=== PATIENT | male | born 1950 | race American Indian/Alaskan Native ===

== ENCOUNTER 2018-02-03 13:34 | Inpatient (IN) | payer MEDICARE ==
--- NOTE | 2018-02-03 14:03 | Cat Scan Report ---
CT HEAD WITHOUT CONTRAST: HISTORY: Stroke. TECHNIQUE: Sequential 2.5mm CT images. COMPARISON: 12/10/17. FINDINGS: Cerebral Parenchyma: Moderate to large chronic infarcts in the right MCA distribution and bilateral medial cerebellar hemispheres are stable since the previous exam. No new areas of diminished attenuation are identified to suggest acute ischemia on noncontrast CT. Brainstem: Within normal limits. Ventricles: Normal. Sella: Normal. Extra-axial spaces: Normal. Basal Cisterns: Normal. Intracranial Hemorrhage: None. Midline Shift: None. Calvarium: Normal. Sinuses: Normal. Mastoid Air Cells: Normal. Visualized Orbits: Normal. IMPRESSION: No acute intracranial process. Multiple chronic infarcts which appear unchanged since 12/10/17. These findings were discussed with Dr. Hall in the emergency department at 1353 hrs.
--- NOTE | 2018-02-03 14:26 | XRay Report ---
AP CHEST: HISTORY: CVA, pneumonia Mild cardiomegaly and single lead pacemaker device are unchanged since 12/10/17. The lungs are clear. No evidence for pneumonia, CHF or pneumothorax. The bony structures are grossly intact. IMPRESSION: Mild cardiomegaly. Lungs clear.
[2018-02-03 14:29] LABS: Basophils % (Auto) 0.3 % (0.0-1.8); Eosinophils # (Auto) 0.1 K/mm3 (0.0-0.4); Eosinophils % (Auto) 0.7 % (0.0-4.3); Hematocrit 35.6 % (35.5-45.6); Hemoglobin 11.8 gm/dl (11.8-15.2); Lymphocytes # (Auto) 0.6 K/mm3 (1.2-5.4); Lymphocytes % (Auto) 6.7 % (13.4-35.0); Mean Corpuscular HGB Conc 33 % (32-34); Mean Corpuscular Hemoglobin 30 pg (28-32); Mean Corpuscular Volume 89 fl (84-94); Monocytes # (Auto) 0.7 K/mm3 (0.0-0.8); Monocytes % (Auto) 7.4 % (0.0-7.3); Platelet Count 170 K/mm3 (140-440); Red Cell Distribution Width 15.8 % (13.2-15.2)
[2018-02-03 14:37] LABS: INR 0.99 (0.87-1.13)
[2018-02-03 14:38] LABS: Partial Thromboplastin Time 28.1 Sec. (24.2-36.6)
[2018-02-03 15:05] LABS: Bilirubin,Urine NEG (Negative); Blood,Urine LG (Negative); Color,Urine Yellow (Yellow); Mucus,Urine FEW /HPF; Urobilinogen,Urine < 2.0 mg/dL (<2.0)
[2018-02-03] MEDS ORDERED: MAGNESIUM SULFATE 2GM/50ML 2 GM/50 ML BAG IV ONE (15:11)
[2018-02-03] MEDS ORDERED: ASPIRIN PR ONE (15:11)
[2018-02-03 15:18] LABS: Chol/HDL Ratio 1.81 %
[2018-02-03] MEDS ORDERED: NACL 0.9% 500 ML 500 ML IV ONE (15:58)
--- NOTE | 2018-02-03 16:05 | Emergency Department Report ---
ED Neuro Deficit HPI - General Chief Complaint: Neuro Symptoms/Deficit Stated Complaint: POSSIBLE STROKE Time Seen by Provider: 02/03/18 13:36 Source: patient, family, EMS (verbal report received from EMS.ems notes not available at time of chart dictation), RN notes reviewed, old records reviewed Mode of arrival: Stretcher Limitations: Altered Mental Status, Physical Limitation - History of Present Illness Initial Comments: This is a 67-year-old male who was previously known to this provider. Past medical history includes stroke 5 with residual left-sided weakness, heart disease, hypertension, seizure, high cholesterol, glaucoma, dementia, BPH. He also has an ICD device, was previously on Coumadin, not currently on systemic anticoagulation. The patient is brought to the hospital by EMS as a possible closed throat. As per verbal report from EMS, last known well time is 5:30 in the morning. The patient presented to the ER at 2:21 PM. The patient is accompanied by home health nurse. She reported that she feels that the patient appears weak than usual, and more lethargic usual. The patient is demented, but verbal, and cannot describe exacerbating or relieving factors cannot describe quality, nature or radiation. The patient does follow commands, and indicated that he does not have a headache, chest pain or abdominal pain. As per review of old medical records, including a recent hospitalization from November 2017, patient has been documented to have left-sided weakness. -: unknown Location: left arm, left leg Presenting Symptoms: Present: Weak/Paralyzed One Side History of same: Yes Place: home Quality: other (patient demented and cannot describe any of these factors.) Improves With: other (patient demented and cannot describe any of these factors. ) Worsens With: other (patient demented and cannot describe any of these factors.) On Anticoagulants: Yes Context: other (patient demented and cannot describe any of these factors.) Associated Symptoms: other (patient demented and cannot describe any of these factors.) - Related Data Home Medications: Home Medications Medication Instructions Recorded Confirmed Last Taken Hydrochlorothiazide [HCTZ] 12.5 mg PO DAILY 03/05/14 02/03/18 02/02/18 Aspirin 81 mg PO QDAY 12/10/17 02/03/18 02/02/18 Cholecalciferol Vit D3 [Vitamin D3] 1,000 unit PO QDAY 0302/03/18 Donepezil [Aricept] 10 mg PO QDAY 12/10/17 02/03/18 02/02/18 Finasteride [Proscar] 5 mg PO QDAY 12/10/17 02/03/18 02/02/18 Oxybutynin [Ditropan] 5 mg PO QDAY 12/10/17 02/03/18 02/02/18 Tamsulosin [Flomax] 0.4 mg PO QDAY 12/10/17 02/03/18 02/02/18 Warfarin [Coumadin] 2.5 mg PO QDAY 02/03/18 02/03/18 02/02/18 Previous Rx's Medication Instructions Recorded Last Taken Type levETIRAcetam [Keppra TAB] 500 mg PO BID 30 Days tablet 03/09/14 02/02/18 Rx Amiodarone [Cordarone 200 MG TAB] 200 mg PO BID #60 tablet 12/16/17 02/02/18 Rx AtorvaSTATin [Lipitor] 40 mg PO QHS #30 tablet 12/16/17 02/02/18 Rx Lisinopril [Zestril TAB] 2.5 mg PO QDAY #30 tablet 12/16/17 02/02/18 Rx Metoprolol [Lopressor TAB] 25 mg PO BID #60 tablet 12/16/17 02/02/18 Rx Allergies/Adverse Reactions: Allergies Allergy/AdvReac Type Severity Reaction Status Date / Time shellfish derived AdvReac Unknown Verified 03/05/14 20:30 ED Review of Systems ROS: Stated complaint: POSSIBLE STROKE Other details as noted in HPI Comment: Unobtainable due to pts medical conditions Constitutional: fever Cardiovascular: denies: chest pain Gastrointestinal: denies: abdominal pain Neurological: as per HPI, weakness ED Past Medical Hx - Past Medical History Hx Hypertension: Yes Hx CVA: Yes Hx Heart Attack/AMI: Yes Hx Congestive Heart Failure: Yes Hx Diabetes: No Hx Liver Disease: No Hx Sickle Cell Disease: No Hx Seizures: Yes Hx Asthma: No Hx COPD: No Additional medical history: HIGH CHOLESTROL, Multiple falls - Surgical History Hx Internal Defibrillator: Yes Additional Surgical History: Defibrillator - Social History Smoking Status: Never Smoker Substance Use Type: None - Medications Home Medications: Home Medications Medication Instructions Recorded Confirmed Last Taken Type Hydrochlorothiazide [HCTZ] 12.5 mg PO DAILY 03/05/14 02/03/18 02/02/18 History levETIRAcetam [Keppra TAB] 500 mg PO BID 30 Days tablet 03/09/14 02/03/1802/02 Rx Aspirin 81 mg PO QDAY 12/10/17 02/03/18 02/02/18 History Cholecalciferol Vit D3 [Vitamin D3] 1,000 unit PO QDAY 12/10/17 02/03/18 History Donepezil [Aricept] 10 mg PO QDAY 12/10/17 02/03/18 02/02/18 History Finasteride [Proscar] 5 mg PO QDAY 12/10/17 02/03/18 02/02/18 History Oxybutynin [Ditropan] 5 mg PO QDAY 12/10/17 02/03/18 02/02/18 History Tamsulosin [Flomax] 0.4 mg PO QDAY 12/10/17 02/03/18 02/02/18 History Amiodarone [Cordarone 200 MG TAB] 200 mg PO BID #60 tablet 12/16/17 02/03/18 Rx AtorvaSTATin [Lipitor] 40 mg PO QHS #30 tablet 12/16/17 02/03/18 02/02/18 Rx Lisinopril [Zestril TAB] 2.5 mg PO QDAY #30 tablet 12/16/17 02/03/18 02/02/18 Rx Metoprolol [Lopressor TAB] 25 mg PO BID #60 tablet 12/16/17 02/03/18 02/02/18 Rx Warfarin [Coumadin] 2.5 mg PO QDAY 02/03/18 02/03/18 02/02/18 History ED Neuro Physical Exam - General Limitations: Physical Limitation General appearance: alert, in no apparent distress Suspected Stroke: No - Head Head exam: Present: atraumatic, normocephalic - Eye Eye exam: Present: normal appearance, PERRL, EOMI. Absent: nystagmus - ENT ENT exam: Present: normal exam, normal orophraynx, mucous membranes moist, normal external ear exam - Neck Neck exam: Present: normal inspection, full ROM - Respiratory Respiratory exam: Present: normal lung sounds bilaterally. Absent: respiratory distress - Cardiovascular Cardiovascular Exam: Present: regular rate, normal rhythm. Absent: systolic murmur, diastolic murmur, rubs, gallop - GI/Abdominal GI/Abdominal exam: Present: soft, normal bowel sounds. Absent: distended, tenderness, guarding, rebound, rigid, pulsatile mass - Rectal Rectal exam: Present: deferred - Extremities Exam Extremities exam: Present: normal inspection, full ROM, normal capillary refill , pedal edema. Absent: tenderness, joint swelling, calf tenderness - Back Exam Back exam: Present: normal inspection, full ROM. Absent: paraspinal tenderness , vertebral tenderness - Neurological Exam Neurological exam: Present: alert, motor sensory deficit - NIHSS Assessment Interval: Baseline 1a. Level of Consciousness: alert 1b. LOC Questions: answers correctly 1c. LOC Commands: performs tasks correctly 2. Best Gaze: normal 3. Visual: no visual loss 4. Facial Palsy: normal symmetrical movement 5b. Motor Arm Right: no drift 5a. Motor Arm Left: no movement 6a. Motor Leg Left: no movement 6b. Motor Leg Right: no drift 7. Limb Ataxia: absent 8. Sensory: normal 9. Best Language: no aphasia 10. Dysarthria: normal 11. Extinction/Inattention: no abnormality Total Score: 8 Stroke Severity: Moderate Stroke - Psychiatric Psychiatric exam: Present: normal affect, normal mood - Skin Skin exam: Present: warm, dry, intact, normal color. Absent: rash ED Course Vital Signs 02/03/18 02/03/18 14:23 15:19 Temperature 98.3 F Pulse Rate 74 64 Respiratory 16 16 Rate Blood Pressure 134/63 Blood Pressure 138/78 [Left] O2 Sat by Pulse 95 99 Oximetry - Reevaluation(s) Reevaluation #1: 02/03/18 16:09 Elevated troponin is reviewed and appreciated, patient's laboratory studies in the past of also demonstrated elevated troponin level. It essentially appears to be at baseline. - Lab Data Result diagrams: 02/03/18 14:13 02/03/18 14:13 Lab Results 02/03/18 02/03/18 02/03/18 Range/Units 13:41 14:13 14:13 WBC 9.4 (4.5-11.0) K/mm3 RBC 4.00 (3.65-5.03) M/mm3 Hgb 11.8 (11.8-15.2) gm/dl Hct 35.6 (35.5-45.6) % MCV 89 (84-94) fl MCH 30 (28-32) pg MCHC 33 (32-34) % RDW 15.8 H (13.2-15.2) % Plt Count 170 (140-440) K/mm3 Lymph % (Auto) 6.7 L (13.4-35.0) % [place] % (Auto) 7.4 H (0.0-7.3) % Eos % (Auto) 0.7 (0.0-4.3) % Baso % (Auto) 0.3 (0.0-1.8) % Lymph # 0.6 L (1.2-5.4) K/mm3 [place] # 0.7 (0.0-0.8) K/mm3 Eos # 0.1 (0.0-0.4) K/mm3 Baso # 0.0 (0.0-0.1) K/mm3 Seg Neutrophils % 84.9 H (40.0-70.0) % Seg Neutrophils # 8.0 H (1.8-7.7) K/mm3 PT 13.6 (12.2-14.9) Sec. INR 0.99 (0.87-1.13) APTT 28.1 (24.2-36.6) Sec. Thrombin Time (15.1-19.6) Sec. Sodium (137-145) mmol/L Potassium (3.6-5.0) mmol/L Chloride (98-107) mmol/L Carbon Dioxide (22-30) mmol/L Anion Gap mmol/L BUN (9-20) mg/dL Creatinine (0.8-1.5) mg/dL Estimated GFR ml/min BUN/Creatinine Ratio % Glucose (75-100) mg/dL POC Glucose 117 H (70-105) Calcium (8.4-10.2) mg/dL Magnesium (1.7-2.3) mg/dL Total Creatine Kinase (55-170) units/L Troponin T (0.00-0.029) ng/mL Triglycerides (2-149) mg/dL Cholesterol (50-199) mg/dL LDL Cholesterol Direct (50-130) mg/dL HDL Cholesterol (40-59) mg/dL Cholesterol/HDL Ratio % Urine Color (Yellow) Urine Turbidity (Clear) Urine pH (5.0-7.0) Ur Specific [place] (1.003-1.030) Urine Protein (Negative) mg/dL Urine Glucose (UA) (Negative) mg/dL Urine Ketones (Negative) mg/dL Urine Blood (Negative) Urine Nitrite (Negative) Urine Bilirubin (Negative) Urine Urobilinogen (<2.0) mg/dL Ur Leukocyte Esterase (Negative) Urine WBC (Auto) (0.0-6.0) /HPF Urine RBC (Auto) (0.0-6.0) /HPF Urine Mucus /HPF Urine Yeast (Budding) /HPF Phenytoin (10.0-20.0) ug/mL 02/03/18 02/03/18 02/03/18 Range/Units 14:13 14:13 14:13 WBC (4.5-11.0) K/mm3 RBC (3.65-5.03) M/mm3 Hgb (11.8-15.2) gm/dl Hct (35.5-45.6) % MCV (84-94) fl MCH (28-32) pg MCHC (32-34) % RDW (13.2-15.2) % Plt Count (140-440) K/mm3 Lymph % (Auto) (13.4-35.0) % [place] % (Auto) (0.0-7.3) % Eos % (Auto) (0.0-4.3) % Baso % (Auto) (0.0-1.8) % Lymph # (1.2-5.4) K/mm3 [place] # (0.0-0.8) K/mm3 Eos # (0.0-0.4) K/mm3 Baso # (0.0-0.1) K/mm3 Seg Neutrophils % (40.0-70.0) % Seg Neutrophils # (1.8-7.7) K/mm3 PT (12.2-14.9) Sec. INR (0.87-1.13) APTT (24.2-36.6) Sec. Thrombin Time 15.9 (15.1-19.6) Sec. Sodium 139 (137-145) mmol/L Potassium 3.6 (3.6-5.0) mmol/L Chloride 102.2 (98-107) mmol/L Carbon Dioxide 25 (22-30) mmol/L Anion Gap 15 mmol/L BUN 34 H (9-20) mg/dL Creatinine 1.7 H (0.8-1.5) mg/dL Estimated GFR 49 ml/min BUN/Creatinine Ratio 20 % Glucose 99 (75-100) mg/dL POC Glucose (70-105) Calcium 9.0 (8.4-10.2) mg/dL Magnesium 0.20 L* (1.7-2.3) mg/dL Total Creatine Kinase 62 (55-170) units/L Troponin T 1.290 H* (0.00-0.029) ng/mL Triglycerides 49 (2-149) mg/dL Cholesterol 127 (50-199) mg/dL LDL Cholesterol Direct 62 (50-130) mg/dL HDL Cholesterol 70 H (40-59) mg/dL Cholesterol/HDL Ratio 1.81 % Urine Color (Yellow) Urine Turbidity (Clear) Urine pH (5.0-7.0) Ur Specific [place] (1.003-1.030) Urine Protein (Negative) mg/dL Urine Glucose (UA) (Negative) mg/dL Urine Ketones (Negative) mg/dL Urine Blood (Negative) Urine Nitrite (Negative) Urine Bilirubin (Negative) Urine Urobilinogen (<2.0) mg/dL Ur Leukocyte Esterase (Negative) Urine WBC (Auto) (0.0-6.0) /HPF Urine RBC (Auto) (0.0-6.0) /HPF Urine Mucus /HPF Urine Yeast (Budding) /HPF Phenytoin (10.0-20.0) ug/mL 02/03/18 02/03/18 Range/Units 14:13 14:54 WBC (4.5-11.0) K/mm3 RBC (3.65-5.03) M/mm3 Hgb (11.8-15.2) gm/dl Hct (35.5-45.6) % MCV (84-94) fl MCH (28-32) pg MCHC (32-34) % RDW (13.2-15.2) % Plt Count (140-440) K/mm3 Lymph % (Auto) (13.4-35.0) % [place] % (Auto) (0.0-7.3) % Eos % (Auto) (0.0-4.3) % Baso % (Auto) (0.0-1.8) % Lymph # (1.2-5.4) K/mm3 [place] # (0.0-0.8) K/mm3 Eos # (0.0-0.4) K/mm3 Baso # (0.0-0.1) K/mm3 Seg Neutrophils % (40.0-70.0) % Seg Neutrophils # (1.8-7.7) K/mm3 PT (12.2-14.9) Sec. INR (0.87-1.13) APTT (24.2-36.6) Sec. Thrombin Time (15.1-19.6) Sec. Sodium (137-145) mmol/L Potassium (3.6-5.0) mmol/L Chloride (98-107) mmol/L Carbon Dioxide (22-30) mmol/L Anion Gap mmol/L BUN (9-20) mg/dL Creatinine (0.8-1.5) mg/dL Estimated GFR ml/min BUN/Creatinine Ratio % Glucose (75-100) mg/dL POC Glucose (70-105) Calcium (8.4-10.2) mg/dL Magnesium (1.7-2.3) mg/dL Total Creatine Kinase (55-170) units/L Troponin T (0.00-0.029) ng/mL Triglycerides (2-149) mg/dL Cholesterol (50-199) mg/dL LDL Cholesterol Direct (50-130) mg/dL HDL Cholesterol (40-59) mg/dL Cholesterol/HDL Ratio % Urine Color Yellow (Yellow) Urine Turbidity Clear (Clear) Urine pH 5.0 (5.0-7.0) Ur Specific [place] 1.021 (1.003-1.030) Urine Protein 30 mg/dl (Negative) mg/dL Urine Glucose (UA) Neg (Negative) mg/dL Urine Ketones Tr (Negative) mg/dL Urine Blood Lg (Negative) Urine Nitrite Neg (Negative) Urine Bilirubin Neg (Negative) Urine Urobilinogen < 2.0 (<2.0) mg/dL Ur Leukocyte Esterase Neg (Negative) Urine WBC (Auto) 2.0 (0.0-6.0) /HPF Urine RBC (Auto) 4.0 (0.0-6.0) /HPF Urine Mucus Few /HPF Urine Yeast (Budding) 1+ /HPF Phenytoin 0.8 L (10.0-20.0) ug/mL - EKG Data -: EKG Interpreted by Me EKG shows normal: sinus rhythm Rate: normal 02/03/18 16:02 Sinus, 61 bpm, normal axis, QTC within normal limits, motion artifact, abnormal EKG, not having pain, not consistent with a STEMI, appears unchanged from prior EKG, PVCs appear to have resolved, and comparison made to EKG from November 2017. - Radiology Data Radiology results: pending, report reviewed, image reviewed Noncontrast CT scan of the brain is negative for acute findings. Chronic findings are noted. - Medical Decision Making Differential diagnosis, including not limited to: Pneumonia, stroke, transient ischemic attack, urinary tract infection, chronic weakness, chronic debility, electrolyte derangement Assessment and plan: 67-year-old male with a documented history of stroke with residual left-sided weakness at this hospital, who presents to the ER after his caregiver felt like he was weaker and more lethargic than usual. On my evaluation the patient is awake and follows commands. He has a chronic documented left-sided weakness and hemiparesis which has been present since November 2017. Other than that, when reviewing his old medical documentation, I do not elucidate any additional or new neurologic deficits. He is awake and protecting his airway and is afebrile with reassuring vital signs. In my opinion, when compared to his prior medical documentation, did not appear to be any new neurologic deficits, so this, in conjunction with his history, makes patient's not eligible for TPA. Furthermore, the patient presented more than 4.5 hours after the reported symptom onset, and is therefore not a thrombolysis candidate. His laboratories showed hypomagnesemia and renal insufficiency. Case was discussed with consulting stroke neurology, Dr. Stevenson, who agreed the patient did not merit tPA, and also did not require emergent CT angiogram. Case is presented to the Hospital physician, Dr. Bravo, who accepted the patient for hypomagnesemia, evaluation for possible subacute stroke. - Core Measures Measure Exclusions: not indicated - Thrombolytic Inclusion/Exclusion Thrombolytic Exclusion Criteria: Symptom Onset > 3 Hours Critical care attestation.: If time is entered above; I have spent that time in minutes in the direct care of this critically ill patient, excluding procedure time. ED Disposition Clinical Impression: History of CVA with residual deficit, Left hemiparesis, Hypomagnesemia, Renal insufficiency, Elevated troponin Disposition: DC-09 OP ADMIT IP TO THIS HOSP Is pt being admited?: Yes Does the pt Need Aspirin: Yes Condition: Stable Referrals: PRIMARY CARE, [Primary Care Provider] - 3-5 Days
--- NOTE | 2018-02-03 22:37 | History and Physical Report ---
History of Present Illness Date of examination: 02/03/18 Date of admission: 02/03/18 16:10 Chief complaint: Chief complaint: Left-sided weakness since 5:30 AM History of present illness: History of Present Illness: 67-year-old male presents with increased left-sided weakness. Patient had left- sided weakness before but the daughter feels that his left-sided weakness is worsened. Patient has stroke 5 times and has history of hypertension seizure hyperlipidemia and BPH. Patient is also on ICD device used to be on Coumadin but not taking Coumadin normal last well on time is 5:30 AM' No exacerbating or relieving factors No dysarthria Past Medical History Hx Hypertension: Yes Hx CVA: Yes Hx Heart Attack/AMI: Yes Hx Congestive Heart Failure: Yes Hx Seizures: Yes Additional medical history: HIGH CHOLESTROL, Multiple falls Surgical History Hx Internal Defibrillator: Yes Additional Surgical History: Defibrillator Social History Smoking Status: Never Smoker Substance Use Type: None Medications Home Medications: Home Medications Medication Instructions Recorded Confirmed Last Taken Type Hydrochlorothiazide [HCTZ] 12.5 mg PO DAILY 03/05/14 02/03/18 02/02/18 History levETIRAcetam [Keppra TAB] 500 mg PO BID 30 Days tablet 03/09/14 02/03/1802/02 Rx Aspirin 81 mg PO QDAY 12/10/17 02/03/18 02/02/18 History Cholecalciferol Vit D3 [Vitamin D3] 1,000 unit PO QDAY 12/10/17 02/03/18 History Donepezil [Aricept] 10 mg PO QDAY 12/10/17 02/03/18 02/02/18 History Finasteride [Proscar] 5 mg PO QDAY 12/10/17 02/03/18 02/02/18 History Oxybutynin [Ditropan] 5 mg PO QDAY 12/10/17 02/03/18 02/02/18 History Tamsulosin [Flomax] 0.4 mg PO QDAY 12/10/17 02/03/18 02/02/18 History Amiodarone [Cordarone 200 MG TAB] 200 mg PO BID #60 tablet 12/16/17 02/03/18 Rx AtorvaSTATin [Lipitor] 40 mg PO QHS #30 tablet 12/16/17 02/03/18 02/02/18 Rx Lisinopril [Zestril TAB] 2.5 mg PO QDAY #30 tablet 12/16/17 02/03/18 02/02/18 Rx Metoprolol [Lopressor TAB] 25 mg PO BID #60 tablet 12/16/17 02/03/18 02/02/18 Rx Warfarin [Coumadin] 2.5 mg PO QDAY 02/03/18 02/03/18 02/02/18 History Review of Systems ROS: Stated complaint: POSSIBLE STROKE Other details as noted in HPI Comment: Unobtainable due to pts medical conditions Constitutional: fever Cardiovascular: denies: chest pain Gastrointestinal: denies: abdominal pain Neurological: as per HPI, weakness 14 point review of systems done and otherwise negative Left-sided weakness present Medications and Allergies Allergies Allergy/AdvReac Type Severity Reaction Status Date / Time shellfish derived AdvReac Unknown Verified 03/05/14 20:30 Home Medications Medication Instructions Recorded Confirmed Last Taken Type Hydrochlorothiazide [HCTZ] 12.5 mg PO DAILY 03/05/14 02/03/18 02/02/18 History levETIRAcetam [Keppra TAB] 500 mg PO BID 30 Days tablet 03/09/14 02/03/1802/02 Rx Aspirin 81 mg PO QDAY 12/10/17 02/03/18 02/02/18 History Cholecalciferol Vit D3 [Vitamin D3] 1,000 unit PO QDAY 12/10/17 02/03/18 History Donepezil [Aricept] 10 mg PO QDAY 12/10/17 02/03/18 02/02/18 History Finasteride [Proscar] 5 mg PO QDAY 12/10/17 02/03/18 02/02/18 History Oxybutynin [Ditropan] 5 mg PO QDAY 12/10/17 02/03/18 02/02/18 History Tamsulosin [Flomax] 0.4 mg PO QDAY 12/10/17 02/03/18 02/02/18 History Amiodarone [Cordarone 200 MG TAB] 200 mg PO BID #60 tablet 12/16/17 02/03/18 Rx AtorvaSTATin [Lipitor] 40 mg PO QHS #30 tablet 12/16/17 02/03/18 02/02/18 Rx Lisinopril [Zestril TAB] 2.5 mg PO QDAY #30 tablet 12/16/17 02/03/18 02/02/18 Rx Metoprolol [Lopressor TAB] 25 mg PO BID #60 tablet 12/16/17 02/03/18 02/02/18 Rx Warfarin [Coumadin] 2.5 mg PO QDAY 02/03/18 02/03/18 02/02/18 History Exam - Physical Exam Narrative exam: Lying in bed comfortably - Constitutional Vitals: Temp Pulse Resp BP Pulse Ox 98.6 F 61 18 126/75 99 02/03/18 20:40 02/03/18 20:00 02/03/18 20:40 02/03/18 20:40 02/03/18 20:00 General appearance: Present: no acute distress, well-nourished - EENT Eyes: Present: PERRL ENT: hearing intact, clear oral mucosa - Neck Neck: Present: supple, normal ROM - Respiratory Respiratory effort: normal Respiratory: bilateral: CTA - Cardiovascular Heart rate: 76 Rhythm: regular Heart Sounds: Present: S1 & S2. Absent: rub, click - Extremities Extremities: no ischemia, pulses intact, pulses symmetrical, No edema Peripheral Pulses: within normal limits - Abdominal General gastrointestinal: Present: soft, non-tender, non-distended, normal bowel sounds Male genitourinary: Present: normal - Rectal Rectal Exam: deferred - Integumentary Integumentary: Present: clear, warm, dry - Musculoskeletal Musculoskeletal: strength equal bilaterally, left sided weakness (left-sided weakness 5 over 5) - Psychiatric Psychiatric: appropriate mood/affect, intact judgment & insight - Neurologic Neurologic: CNII-XII intact, other (cannot walk because of the left hemiplegia) Results - Labs CBC & Chem 7: 02/03/18 14:13 02/03/18 14:13 Labs: Laboratory Last Values WBC 9.4 K/mm3 (4.5-11.0) 02/03/18 14:13 RBC 4.00 M/mm3 (3.65-5.03) 02/03/18 14:13 Hgb 11.8 gm/dl (11.8-15.2) 02/03/18 14:13 Hct 35.6 % (35.5-45.6) 02/03/18 14:13 MCV 89 fl (84-94) 02/03/18 14:13 MCH 30 pg (28-32) 02/03/18 14:13 MCHC 33 % (32-34) 02/03/18 14:13 RDW 15.8 % (13.2-15.2) H 02/03/18 14:13 Plt Count 170 K/mm3 (140-440) 02/03/18 14:13 Lymph % (Auto) 6.7 % (13.4-35.0) L 02/03/18 14:13 [place] % (Auto) 7.4 % (0.0-7.3) H 02/03/18 14:13 Eos % (Auto) 0.7 % (0.0-4.3) 02/03/18 14:13 Baso % (Auto) 0.3 % (0.0-1.8) 02/03/18 14:13 Lymph # 0.6 K/mm3 (1.2-5.4) L 02/03/18 14:13 [place] # 0.7 K/mm3 (0.0-0.8) 02/03/18 14:13 Eos # 0.1 K/mm3 (0.0-0.4) 02/03/18 14:13 Baso # 0.0 K/mm3 (0.0-0.1) 02/03/18 14:13 Seg Neutrophils % 84.9 % (40.0-70.0) H 02/03/18 14:13 Seg Neutrophils # 8.0 K/mm3 (1.8-7.7) H 02/03/18 14:13 PT 13.6 Sec. (12.2-14.9) 02/03/18 14:13 INR 0.99 (0.87-1.13) 02/03/18 14:13 APTT 28.1 Sec. (24.2-36.6) 02/03/18 14:13 Thrombin Time 15.9 Sec. (15.1-19.6) 02/03/18 14:13 Sodium 139 mmol/L (137-145) 02/03/18 14:13 Potassium 3.6 mmol/L (3.6-5.0) 02/03/18 14:13 Chloride 102.2 mmol/L (98-107) 02/03/18 14:13 Carbon Dioxide 25 mmol/L (22-30) 02/03/18 14:13 Anion Gap 15 mmol/L 02/03/18 14:13 BUN 34 mg/dL (9-20) H 02/03/18 14:13 Creatinine 1.7 mg/dL (0.8-1.5) H 02/03/18 14:13 Estimated GFR 49 ml/min 02/03/18 14:13 BUN/Creatinine Ratio 20 % 02/03/18 14:13 Glucose 99 mg/dL (75-100) 02/03/18 14:13 POC Glucose 117 (70-105) H 02/03/18 13:41 Calcium 9.0 mg/dL (8.4-10.2) 02/03/18 14:13 Magnesium 0.20 mg/dL (1.7-2.3) L* 02/03/18 14:13 Total Creatine Kinase 62 units/L (55-170) 02/03/18 14:13 Troponin T 1.290 ng/mL (0.00-0.029) H* 02/03/18 14:13 Triglycerides 49 mg/dL (2-149) 02/03/18 14:13 Cholesterol 127 mg/dL (50-199) 02/03/18 14:13 LDL Cholesterol Direct 62 mg/dL (50-130) 02/03/18 14:13 HDL Cholesterol 70 mg/dL (40-59) H 02/03/18 14:13 Cholesterol/HDL Ratio 1.81 % 02/03/18 14:13 Urine Color Yellow (Yellow) 02/03/18 14:54 Urine Turbidity Clear (Clear) 02/03/18 14:54 Urine pH 5.0 (5.0-7.0) 02/03/18 14:54 Ur Specific [place] 1.021 (1.003-1.030) 02/03/18 14:54 Urine Protein 30 mg/dl mg/dL (Negative) 02/03/18 14:54 Urine Glucose (UA) Neg mg/dL (Negative) 02/03/18 14:54 Urine Ketones Tr mg/dL (Negative) 02/03/18 14:54 Urine Blood Lg (Negative) 02/03/18 14:54 Urine Nitrite Neg (Negative) 02/03/18 14:54 Urine Bilirubin Neg (Negative) 02/03/18 14:54 Urine Urobilinogen < 2.0 mg/dL (<2.0) 02/03/18 14:54 Ur Leukocyte Esterase Neg (Negative) 02/03/18 14:54 Urine WBC (Auto) 2.0 /HPF (0.0-6.0) 02/03/18 14:54 Urine RBC (Auto) 4.0 /HPF (0.0-6.0) 02/03/18 14:54 Urine Mucus Few /HPF 02/03/18 14:54 Urine Yeast (Budding) 1+ /HPF 02/03/18 14:54 Phenytoin 0.8 ug/mL (10.0-20.0) L 02/03/18 14:13 Short CBC 02/03/18 Range/Units 14:13 WBC 9.4 (4.5-11.0) K/mm3 Hgb 11.8 (11.8-15.2) gm/dl Hct 35.6 (35.5-45.6) % Plt Count 170 (140-440) K/mm3 BMP 02/03/18 14:13 Sodium 139 Potassium 3.6 Chloride 102.2 Carbon Dioxide 25 BUN 34 H Creatinine 1.7 H Glucose 99 Calcium 9.0 Cardiac Enzymes 02/03/18 02/03/18 Range/Units 14:13 14:13 Total Creatine Kinase 62 (55-170) units/L Troponin T 1.290 H* (0.00-0.029) ng/mL Urine 02/03/18 Range/Units 14:54 Urine Color Yellow (Yellow) Urine pH 5.0 (5.0-7.0) Ur Specific [place] 1.021 (1.003-1.030) Urine Protein 30 mg/dl (Negative) mg/dL Urine Glucose (UA) Neg (Negative) mg/dL - Imaging and Cardiology Imaging and Cardiology: CT head IMPRESSION: No acute intracranial process. Multiple chronic infarcts which appear unchanged since 12/10/17. These findings were discussed with Dr. Hall in the emergency department at 1353 hrs. 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 Repeat troponins May be secondary to elevated creatinine (3) GARRICK (acute kidney injury) Current Visit: Yes Status: Acute Plan to address problem: IV fluids for now (4) BPH (benign prostatic hyperplasia) Current Visit: Yes Status: Chronic Qualifiers: Lower urinary tract symptom presence: symptoms present Plan to address problem: Continue Flomax and Proscar (5) Hypertension Current Visit: Yes Status: Chronic Qualifiers: Hypertension type: essential hypertension Qualified Code(s): I10 - Essential (primary) hypertension Plan to address problem: Continue lisinopril and metoprolol (6) Arrhythmia Current Visit: Yes Status: Chronic Qualifiers: Arrhythmia type: atrial fibrillation Plan to address problem: Continue amiodarone and Coumadin (7) OAB (overactive bladder) Current Visit: Yes Status: Chronic Plan to address problem: Continue oxybutynin (8) Hyperlipidemia Current Visit: Yes Status: Chronic Qualifiers: Hyperlipidemia type: mixed hyperlipidemia Qualified Code(s): E78.2 - Mixed hyperlipidemia Plan to address problem: Continue statins (9) Seizure disorder Current Visit: Yes Status: Chronic Plan to address problem: Continue Keppra (10) DVT prophylaxis Current Visit: Yes Status: Acute Plan to address problem: Heparin initiated GI prophylaxis famotidine initiated
[2018-02-03] MEDS ORDERED: MORPHINE IV PRN (22:49)
[2018-02-03] MEDS ORDERED: ZOFRAN IV PRN (22:49)
[2018-02-03] MEDS ORDERED: TYLENOL PO PRN (22:49)
[2018-02-03] MEDS ORDERED: SODIUM CHLORIDE FLUSH SYRINGE 10 ML IV PRN ×2 (22:49→22:53)
[2018-02-03] MEDS ORDERED: NACL 0.9% 1000 ML 1,000 ML IV SCH (23:00)
[2018-02-03] MEDS: LOPRESSOR PO SCH (23:50)
[2018-02-03] MEDS: CORDARONE PO SCH (23:50)
[2018-02-03] MEDS: KEPPRA PO SCH (23:50)
[2018-02-04] MEDS: PERCOCET 5/325 PO PRN ×2 (05:51→17:37)
[2018-02-04 08:08] LABS: Basophils % (Auto) 0.3 % (0.0-1.8); Eosinophils % (Auto) 0.2 % (0.0-4.3); Hematocrit 31.7 % (35.5-45.6); Hemoglobin 10.3 gm/dl (11.8-15.2); Lymphocytes # (Auto) 0.7 K/mm3 (1.2-5.4); Lymphocytes % (Auto) 9.5 % (13.4-35.0); Mean Corpuscular HGB Conc 33 % (32-34); Mean Corpuscular Hemoglobin 29 pg (28-32); Mean Corpuscular Volume 89 fl (84-94); Monocytes # (Auto) 0.6 K/mm3 (0.0-0.8); Monocytes % (Auto) 7.5 % (0.0-7.3); Platelet Count 155 K/mm3 (140-440); Red Blood Count 3.55 M/mm3 (3.65-5.03)
[2018-02-04 08:35] LABS: Alanine Aminotransferase 69 units/L (7-56); Albumin 2.9 g/dL (3.9-5); BUN/Creatinine Ratio 25; Blood Urea Nitrogen 27 mg/dL (9-20); Calcium 8.2 mg/dL (8.4-10.2); Hemolysis Index 70
--- NOTE | 2018-02-04 09:28 | Progress Note ---
Assessment and Plan Assessment and plan: 67-year-old male presents with increased left-sided weakness. Patient had left- sided weakness before but the daughter feels that his left-sided weakness is worsened. Acute CVA (cerebrovascular accident) Pt has defibrillator unable to obtain MRI, continue Plavix, ASA, statin, CAROTID DUPLEX DONE. <50% STENOSIS BILATERALLY, PT, OT, speech, Neurology consult Elevated troponin Cardiology following Repeat troponins trending down, chronically elevated GARRICK (acute kidney injury) Cr improving 1.1 today BPH (benign prostatic hyperplasia) Continue Flomax and Proscar Hypertension Continue lisinopril and metoprolol Arrhythmia Continue amiodarone and Coumadin OAB (overactive bladder): Continue oxybutynin Hyperlipidemia Continue statins Seizure disorder Continue Keppra Anemia Hb today is 10.3, closely monitor H&H and transfuse additional PRBC Hypomagnesemia Supplemented Malnutrition Water Resources Program Director consulted History Interval history: Patient seen and examined. Somnolent today, feels very weak and tired. Labs, chart notes and nursing notes reviewed. Hospitalist Physical - Physical exam Narrative exam: General appearance: Present: no acute distress, well-nourished - EENT Eyes: Present: PERRL ENT: hearing intact, clear oral mucosa - Neck Neck: Present: supple, normal ROM - Respiratory Respiratory effort: normal Respiratory: bilateral: CTA - Cardiovascular Heart rate: 76 Rhythm: regular Heart Sounds: Present: S1 & S2. Absent: rub, click - Extremities Extremities: no ischemia, pulses intact, pulses symmetrical, No edema Peripheral Pulses: within normal limits - Abdominal General gastrointestinal: Present: soft, non-tender, non-distended, normal bowel sounds Male genitourinary: Present: normal - Rectal Rectal Exam: deferred - Integumentary Integumentary: Present: clear, warm, dry - Musculoskeletal Musculoskeletal: left sided weakness (left-sided weakness 5/5) - Psychiatric Psychiatric: appropriate mood/affect, intact judgment & insight - Neurologic Neurologic: CNII-XII intact, other (cannot walk because of the left hemiplegia) - Constitutional Vitals: Temp Pulse Resp BP Pulse Ox 98.5 F 51 L 18 113/63 97 02/04/18 07:40 02/04/18 07:40 02/04/18 07:40 02/04/18 07:40 02/04/18 07:40 Results - Labs CBC & Chem 7: 02/04/18 07:37 02/04/18 07:37 Labs: Laboratory Last Values WBC 7.4 K/mm3 (4.5-11.0) 02/04/18 07:37 RBC 3.55 M/mm3 (3.65-5.03) L 02/04/18 07:37 Hgb 10.3 gm/dl (11.8-15.2) L 02/04/18 07:37 Hct 31.7 % (35.5-45.6) L 02/04/18 07:37 MCV 89 fl (84-94) 02/04/18 07:37 MCH 29 pg (28-32) 02/04/18 07:37 MCHC 33 % (32-34) 02/04/18 07:37 RDW 16.0 % (13.2-15.2) H 02/04/18 07:37 Plt Count 155 K/mm3 (140-440) 02/04/18 07:37 Lymph % (Auto) 9.5 % (13.4-35.0) L 02/04/18 07:37 [place] % (Auto) 7.5 % (0.0-7.3) H 02/04/18 07:37 Eos % (Auto) 0.2 % (0.0-4.3) 02/04/18 07:37 Baso % (Auto) 0.3 % (0.0-1.8) 02/04/18 07:37 Lymph # 0.7 K/mm3 (1.2-5.4) L 02/04/18 07:37 [place] # 0.6 K/mm3 (0.0-0.8) 02/04/18 07:37 Eos # 0.0 K/mm3 (0.0-0.4) 02/04/18 07:37 Baso # 0.0 K/mm3 (0.0-0.1) 02/04/18 07:37 Seg Neutrophils % 82.5 % (40.0-70.0) H 02/04/18 07:37 Seg Neutrophils # 6.1 K/mm3 (1.8-7.7) 02/04/18 07:37 PT 13.6 Sec. (12.2-14.9) 02/03/18 14:13 INR 0.99 (0.87-1.13) 02/03/18 14:13 APTT 28.1 Sec. (24.2-36.6) 02/03/18 14:13 Thrombin Time 15.9 Sec. (15.1-19.6) 02/03/18 14:13 Sodium 141 mmol/L (137-145) 02/04/18 07:37 Potassium 4.1 mmol/L (3.6-5.0) 02/04/18 07:37 Chloride 106.1 mmol/L (98-107) 02/04/18 07:37 Carbon Dioxide 24 mmol/L (22-30) 02/04/18 07:37 Anion Gap 15 mmol/L 02/04/18 07:37 BUN 27 mg/dL (9-20) H 02/04/18 07:37 Creatinine 1.1 mg/dL (0.8-1.5) 02/04/18 07:37 Estimated GFR > 60 ml/min 02/04/18 07:37 BUN/Creatinine Ratio 25 % 02/04/18 07:37 Glucose 98 mg/dL (75-100) 02/04/18 07:37 POC Glucose 117 (70-105) H 02/03/18 13:41 Hemoglobin A1c 6.6 % (4-6) H 02/03/18 22:50 Calcium 8.2 mg/dL (8.4-10.2) L 02/04/18 07:37 Magnesium 0.20 mg/dL (1.7-2.3) L* 02/03/18 14:13 Total Bilirubin 0.40 mg/dL (0.1-1.2) 02/04/18 07:37 AST 252 units/L (5-40) H 02/04/18 07:37 ALT 69 units/L (7-56) H 02/04/18 07:37 Alkaline Phosphatase 77 units/L (35-129) 02/04/18 07:37 Total Creatine Kinase 62 units/L (55-170) 02/03/18 14:13 Troponin T 1.290 ng/mL (0.00-0.029) H* 02/03/18 14:13 Total Protein 5.6 g/dL (6.3-8.2) L 02/04/18 07:37 Albumin 2.9 g/dL (3.9-5) L 02/04/18 07:37 Albumin/Globulin Ratio 1.1 % 02/04/18 07:37 Triglycerides 49 mg/dL (2-149) 02/03/18 14:13 Cholesterol 127 mg/dL (50-199) 02/03/18 14:13 LDL Cholesterol Direct 62 mg/dL (50-130) 02/03/18 14:13 HDL Cholesterol 70 mg/dL (40-59) H 02/03/18 14:13 Cholesterol/HDL Ratio 1.81 % 02/03/18 14:13 Urine Color Yellow (Yellow) 02/03/18 14:54 Urine Turbidity Clear (Clear) 02/03/18 14:54 Urine pH 5.0 (5.0-7.0) 02/03/18 14:54 Ur Specific [place] 1.021 (1.003-1.030) 02/03/18 14:54 Urine Protein 30 mg/dl mg/dL (Negative) 02/03/18 14:54 Urine Glucose (UA) Neg mg/dL (Negative) 02/03/18 14:54 Urine Ketones Tr mg/dL (Negative) 02/03/18 14:54 Urine Blood Lg (Negative) 02/03/18 14:54 Urine Nitrite Neg (Negative) 02/03/18 14:54 Urine Bilirubin Neg (Negative) 02/03/18 14:54 Urine Urobilinogen < 2.0 mg/dL (<2.0) 02/03/18 14:54 Ur Leukocyte Esterase Neg (Negative) 02/03/18 14:54 Urine WBC (Auto) 2.0 /HPF (0.0-6.0) 02/03/18 14:54 Urine RBC (Auto) 4.0 /HPF (0.0-6.0) 02/03/18 14:54 Urine Mucus Few /HPF 02/03/18 14:54 Urine Yeast (Budding) 1+ /HPF 02/03/18 14:54 Phenytoin 0.8 ug/mL (10.0-20.0) L 02/03/18 14:13
[2018-02-04] MEDS: KEPPRA PO SCH ×2 (10:18→21:38)
[2018-02-04] MEDS: CORDARONE PO SCH ×2 (10:18→21:39)
[2018-02-04] MEDS: LOPRESSOR PO SCH ×2 (10:19→21:39)
[2018-02-04] MEDS: SODIUM CHLORIDE FLUSH SYRINGE 10 ML IV SCH ×2 (10:19→21:40)
--- NOTE | 2018-02-04 11:42 | Consultation ---
History of Present Illness Consult date: 02/04/18 Consult reason: elevated troponin History of present illness: This is a 67year-old man with multiple medical problems. He has a history of a CVA with a residual left hemiparesis. He has a cardiomyopathy and indwelling cardiac defibrillator. An echocardiogram 2 months ago reports a left ventricle ejection fraction of 15-20%. His usual drosser is at the [place]. He also has paroxysmal atrial fibrillation. Patient was previously considered no longer a candidate for oral anticoagulation due to severe anemia. Patient was brought to the hospital with complaints of weakness. Family member at bedside reports the patient is normally ambulatory with a cane. A few days ago, he dropped his cane, went to pick it up from under the bed and was unable to pull himself from the floor causing resulting in severe weakness and lethargy. Patient denies loss of consciousness. On presentation, he was found with severe hypomagnesemia, magnesium of 0.2. A cardiac consultation was requested for chronic elevation of troponin. Patient denies chest pain and shortness of breath. He denies AICD discharge. His ECG is normal sinus rhythm, old inferior myocardial infarction. Medications and Allergies Allergies Allergy/AdvReac Type Severity Reaction Status Date / Time shellfish derived AdvReac Unknown Verified 03/05/14 20:30 Home Medications Medication Instructions Recorded Confirmed Last Taken Type Hydrochlorothiazide [HCTZ] 12.5 mg PO DAILY 03/05/14 02/03/18 02/02/18 History levETIRAcetam [Keppra TAB] 500 mg PO BID 30 Days tablet 03/09/14 02/03/1802/02 Rx Aspirin 81 mg PO QDAY 12/10/17 02/03/18 02/02/18 History Cholecalciferol Vit D3 [Vitamin D3] 1,000 unit PO QDAY 12/10/17 02/03/18 History Donepezil [Aricept] 10 mg PO QDAY 12/10/17 02/03/18 02/02/18 History Finasteride [Proscar] 5 mg PO QDAY 12/10/17 02/03/18 02/02/18 History Oxybutynin [Ditropan] 5 mg PO QDAY 12/10/17 02/03/18 02/02/18 History Tamsulosin [Flomax] 0.4 mg PO QDAY 12/10/17 02/03/18 02/02/18 History Amiodarone [Cordarone 200 MG TAB] 200 mg PO BID #60 tablet 12/16/17 02/03/18 Rx AtorvaSTATin [Lipitor] 40 mg PO QHS #30 tablet 12/16/17 02/03/18 02/02/18 Rx Lisinopril [Zestril TAB] 2.5 mg PO QDAY #30 tablet 12/16/17 02/03/18 02/02/18 Rx Metoprolol [Lopressor TAB] 25 mg PO BID #60 tablet 12/16/17 02/03/18 02/02/18 Rx Warfarin [Coumadin] 2.5 mg PO QDAY 02/03/18 02/03/18 02/02/18 History Active Meds: Active Medications Acetaminophen (Tylenol) 650 mg PO Q4H PRN PRN Reason: Pain MILD(1-3)/Fever >100.5/PAPPAS Amiodarone HCl (Cordarone) 200 mg PO BID [facility] Last Admin: 02/03/18 23:50 Dose: 200 mg Aspirin (Baby Aspirin) 81 mg PO QDAY [facility] Atorvastatin Calcium (Lipitor) 40 mg PO QHS [facility] Cholecalciferol (Vitamin D3) 1,000 unit PO QDAY [facility] Clopidogrel Bisulfate (Plavix) 75 mg PO QDAY [facility] Donepezil HCl (Aricept) 10 mg PO QDAY [facility] Famotidine (Pepcid) 20 mg PO QAM [facility] Finasteride (Proscar) 5 mg PO QDAY [facility] Hydrochlorothiazide (Hctz) 12.5 mg PO DAILY [facility] Levetiracetam (Keppra) 500 mg PO BID [facility] Last Admin: 02/03/18 23:50 Dose: 500 mg Lisinopril (Zestril) 2.5 mg PO QDAY [facility] Metoprolol Tartrate (Lopressor) 25 mg PO BID [facility] Last Admin: 02/03/18 23:50 Dose: 25 mg Morphine Sulfate (Morphine) 2 mg IV Q4H PRN PRN Reason: Pain, Moderate (4-6) Ondansetron HCl (Zofran) 4 mg IV Q8H PRN PRN Reason: Nausea And Vomiting Oxybutynin Chloride (Ditropan) 5 mg PO QDAY [facility] Oxycodone/Acetaminophen (Percocet 5/325) 1 tab PO Q6H PRN PRN Reason: Pain, Moderate (4-6) Last Admin: 02/04/18 05:51 Dose: 1 tab Sodium Chloride (Sodium Chloride Flush Syringe 10 Ml) 10 ml IV PRN PRN PRN Reason: LINE FLUSH Sodium Chloride (Sodium Chloride Flush Syringe 10 Ml) 10 ml IV BID [facility] Sodium Chloride (Sodium Chloride Flush Syringe 10 Ml) 10 ml IV PRN PRN PRN Reason: LINE FLUSH Tamsulosin HCl (Flomax) 0.4 mg PO QDAY [facility] Warfarin Sodium (Coumadin) 2.5 mg PO QDAY@1700 DAMIAN; Protocol Physical Examination Vital Signs Temp Pulse Resp BP Pulse Ox 98.3 F 74 16 134/63 95 02/03/18 14:23 02/03/18 14:23 02/03/18 14:23 02/03/18 14:23 02/03/18 14:23 Results 02/04/18 07:37 02/04/18 07:37 Cardiac Enzymes 02/04/18 Range/Units 07:37 AST 252 H (5-40) units/L Coagulation 02/03/18 Range/Units 14:13 PT 13.6 (12.2-14.9) Sec. INR 0.99 (0.87-1.13) APTT 28.1 (24.2-36.6) Sec. Lipids 02/03/18 Range/Units 14:13 Triglycerides 49 (2-149) mg/dL Cholesterol 127 (50-199) mg/dL HDL Cholesterol 70 H (40-59) mg/dL Cholesterol/HDL Ratio 1.81 % CBC 02/03/18 02/04/18 Range/Units 14:13 07:37 WBC 9.4 7.4 (4.5-11.0) K/mm3 RBC 4.00 3.55 L (3.65-5.03) M/mm3 Hgb 11.8 10.3 L (11.8-15.2) gm/dl Hct 35.6 31.7 L (35.5-45.6) % Plt Count 170 155 (140-440) K/mm3 Lymph # 0.6 L 0.7 L (1.2-5.4) K/mm3 [place] # 0.7 0.6 (0.0-0.8) K/mm3 Eos # 0.1 0.0 (0.0-0.4) K/mm3 Baso # 0.0 0.0 (0.0-0.1) K/mm3 Comprehensive Metabolic Panel 02/03/18 02/04/18 Range/Units 14:13 07:37 Sodium 139 141 (137-145) mmol/L Potassium 3.6 4.1 (3.6-5.0) mmol/L Chloride 102.2 106.1 (98-107) mmol/L Carbon Dioxide 25 24 (22-30) mmol/L BUN 34 H 27 H (9-20) mg/dL Creatinine 1.7 H 1.1 (0.8-1.5) mg/dL Glucose 99 98 (75-100) mg/dL Calcium 9.0 8.2 L (8.4-10.2) mg/dL AST 252 H (5-40) units/L ALT 69 H (7-56) units/L Alkaline Phosphatase 77 (35-129) units/L Total Protein 5.6 L (6.3-8.2) g/dL Albumin 2.9 L (3.9-5) g/dL Assessment and Plan Weakness Prior CVA Hx of severe anemia Dilated Cardiomyopathy EF 15-20% by echo 11/2017 Presence of AICD([employer]) Paroxysmal atrial fibrillation on amiodarone for suppression. previously considered not a candidate for oral anticoagualtion due to his severe anemia. Chronic elevated troponin
[2018-02-04] MEDS: DITROPAN PO SCH (15:35)
[2018-02-04] MEDS: PROSCAR PO SCH (15:35)
[2018-02-04] MEDS: ZESTRIL PO SCH (15:36)
[2018-02-04] MEDS: PEPCID PO SCH (15:37)
[2018-02-04] MEDS: ARICEPT PO SCH (15:38)
[2018-02-04] MEDS: PLAVIX PO SCH (15:38)
[2018-02-04] MEDS: FLOMAX PO SCH (15:39)
[2018-02-04] MEDS: BABY ASPIRIN PO SCH (15:39)
[2018-02-04] MEDS: HCTZ PO SCH (15:39)
[2018-02-04] MEDS: VITAMIN D3 PO SCH (15:40)
[2018-02-04] MEDS: COUMADIN PO SCH (17:36)
--- NOTE | 2018-02-05 02:40 | Consultation ---
NEUROLOGIC CONSULTATION REFERRING PHYSICIAN: Dr. Kincaid ____. REASON FOR CONSULTATION: Left-sided weakness. HISTORY OF PRESENT ILLNESS: Given by the home health care female who is taking care of him. He lives in their facility because the daughter does not want to take care of him anymore. Apparently about the day before yesterday, he was doing well, maybe he just did not look too good, and then early that morning yesterday, he was in his bed. The of the lady saw him. He was doing fine and then he laughed and came back and he just saw him on the floor. There was no loss of consciousness, no apparent seizure. He appeared to be responsive. However, he was very weak. He practically was not moving everything especially the left upper extremity. Because of this, they called the medical facility and they brought him to the hospital. He apparently was not talking also. He was then admitted and was worked up for possible stroke. Since he started to walk up, he was unable to move the left side anymore, but before he was able to move it. The patient has an ICD device and used to be on Coumadin, but not taking Coumadin anymore. PAST MEDICAL HISTORY: The patient has hypertension. He has about 8 or 9 stroke. He has heart attack, congestive heart failure, atrial fibrillation, hypertension, and hypercholesterolemia. He has had multiple falls. PAST SURGICAL HISTORY: The patient has an internal defibrillator. SOCIAL HISTORY: The patient lives with a senior quality manager. He used to be a heavy smoker, but now he does not drink alcohol. No drugs. CURRENT MEDICATIONS: Hydrochlorothiazide, levetiracetam, aspirin, cholecalciferol, donepezil, finasteride, oxybutynin, tamsulosin, amiodarone, atorvastatin, lisinopril, metoprolol, and warfarin. PHYSICAL EXAMINATION: GENERAL: Revealed a well-developed, but chronically ill-looking male who is in no acute distress. VITAL SIGNS: His temperature 98.6, pulse rate 60, respirations 16 and regular, blood pressure 126/75, pulse oximetry 99%. HEENT: Revealed that he is balding. Poorly kept it. No intracranial or intraorbital bruise. NECK: Supple. No carotid bruit. HEART: Irregular in rhythm. He has an ICD. LUNGS: Sounds clear. ABDOMEN: Soft. EXTREMITIES: Appeared externally normal. NEUROLOGIC: Revealed the patient has mild dementia. However, he is communicative. He follows verbal commands. Cranial nerve examination showed a left-sided homonymous hemianopsia, left facial weakness. Tongue was midline. No gaze preference. Rest of the cranial nerves unremarkable. Motor examination reveals the right side to be moving at least about 5-/5; the left side, however, about 2/5, left upper and lower extremities. There is increased tone. Reflexes are symmetrical. Babinski on the left. INITIAL CLINICAL IMPRESSION: The patient appeared to have a rather acute right-sided hemispheric dysfunction, most likely the patient has a cerebrovascular accident affecting the right hemisphere in the distribution of the middle cerebral or internal carotid artery. The patient is stable right now. The patient has other multiple medical problems. RECOMMENDATIONS: 1. Physical therapy. 2. Cannot do an MRI of the brain, but clinically this patient has a stroke. CT scan showed chronic ischemic changes only for carotid ultrasound, 2D echo. 3. Continue antiplatelet, Coumadin. Cardiac evaluation. 4. This patient is neurologically well right now and stable. He is very likely that he had a transient ischemic attack or a small stroke. 60 minutes involved in the evaluation and management of this patient. More than 50% in the coordination of care. Thank you for this referral. JOB# [id number] FABIOLA/TEGAN
[2018-02-05 06:20] LABS: INR 1.1 (0.87-1.13)
--- NOTE | 2018-02-05 08:40 | Progress Note ---
Assessment and Plan 67-year-old male presents with increased left-sided weakness. Patient had left- sided weakness before but the daughter feels that his left-sided weakness is worsened. - Acute CVA (cerebrovascular accident) Pt has defibrillator unable to obtain MRI, CXR indicate mild cardiomegaly Head CT no acute process with multiple chronic infarcts CAROTID DUPLEX DONE. <50% STENOSIS BILATERALLY continue Plavix, ASA, statin, PT, OT, S/P, Neurology consulted -Elevated troponin Cardiology following Repeat troponins trending down, chronically elevated per baby sitter GARRICK (acute kidney injury) Cr improving 1.1 today BPH (benign prostatic hyperplasia) Continue Flomax and Proscar Hypertension Continue lisinopril and metoprolol Arrhythmia Continue amiodarone and Coumadin OAB (overactive bladder): Continue oxybutynin Hyperlipidemia Continue statins Seizure disorder Continue Keppra Anemia Hb today is 10.3, closely monitor H&H and transfuse additional PRBC Hypomagnesemia Supplemented Malnutrition Certified Welding Inspector consulted Subjective Date of service: 02/05/18 Principal diagnosis: Acute CVA and elevated Cs Interval history: Pt seen and examined. No new complaint. Denies any chest pain. reviewed laboratory and radiological data Objective - Constitutional Vitals: Vital Signs - 12hr 02/04/18 02/05/18 02/05/18 22:00 00:16 02:12 Temperature 99.4 F Pulse Rate 64 64 Respiratory 20 18 Rate Respiratory 20 Rate [coccyx] Blood Pressure 139/69 O2 Sat by Pulse 97 98 Oximetry 02/05/18 07:44 Temperature 99.9 F H Pulse Rate 64 Respiratory 20 Rate Respiratory Rate [coccyx] Blood Pressure 147/89 O2 Sat by Pulse 99 Oximetry General appearance: Present: no acute distress, well-nourished - EENT Eyes: PERRL, EOM intact ENT: hearing intact, clear oral mucosa - Neck Neck: supple, normal ROM - Respiratory Respiratory effort: normal Respiratory: bilateral: CTA - Cardiovascular Rhythm: regular Heart Sounds: Present: S1 & S2. Absent: gallop, rub Extremities: pulses intact, No edema, normal color, Full ROM - Gastrointestinal General gastrointestinal: Present: soft, non-tender, non-distended, normal bowel sounds - Integumentary Integumentary: clear, warm, dry - Musculoskeletal Musculoskeletal: right sided weakness - Neurologic Neurologic: moves all extremities - Psychiatric Psychiatric: memory intact, appropriate mood/affect, intact judgment & insight - Labs CBC & Chem 7: 02/04/18 07:37 02/04/18 07:37 Labs: Abnormal lab results 02/04/18 02/04/18 02/04/18 Range/Units 07:37 14:09 18:16 AST 252 H (5-40) units/L Troponin T 1.010 H* D 1.240 H* D (0.00-0.029) ng/mL 02/05/18 Range/Units 00:56 AST (5-40) units/L Troponin T 1.320 H* (0.00-0.029) ng/mL
[2018-02-05] MEDS: PROSCAR PO SCH (09:33)
[2018-02-05] MEDS: PLAVIX PO SCH (09:33)
[2018-02-05] MEDS: CORDARONE PO SCH ×2 (09:33→21:48)
[2018-02-05] MEDS: HCTZ PO SCH (09:33)
[2018-02-05] MEDS: LOPRESSOR PO SCH ×2 (09:34→21:47)
[2018-02-05] MEDS: BABY ASPIRIN PO SCH (09:34)
[2018-02-05] MEDS: ZESTRIL PO SCH (09:34)
[2018-02-05] MEDS: ARICEPT PO SCH (09:34)
[2018-02-05] MEDS: PEPCID PO SCH (09:34)
[2018-02-05] MEDS: FLOMAX PO SCH (09:34)
[2018-02-05] MEDS: VITAMIN D3 PO SCH (09:34)
[2018-02-05] MEDS: DITROPAN PO SCH (09:34)
[2018-02-05] MEDS: KEPPRA PO SCH ×2 (09:34→21:47)
[2018-02-05] MEDS: SODIUM CHLORIDE FLUSH SYRINGE 10 ML IV SCH ×2 (09:35→21:47)
--- NOTE | 2018-02-05 12:04 | Progress Note ---
Assessment and Plan Weakness Prior CVA Hx of severe anemia Dilated Cardiomyopathy EF 15-20% by echo 11/2017 Presence of AICD(Medtronic) Paroxysmal atrial fibrillation on amiodarone for suppression. previously considered not a candidate for oral anticoagualtion due to his severe anemia. Chronic elevated troponin Recommend: Medical therapy for his dilated cardiomyopathy and paroxysmal atrial fibrillation. Subjective Date of service: 02/05/18 Principal diagnosis: Acute CVA and elevated Cs Interval history: Patient is resting in bed comfortably. He denies shortness of breath and chest pain. Objective Vital Signs Temp Pulse Resp Resp BP Pulse Ox 02/05/18 07:44 99.9 F H 64 20 147/89 99 02/05/18 02:12 99.4 F 64 18 139/69 98 02/05/18 00:16 64 02/04/18 22:00 20 20 97 02/04/18 19:36 99.0 F 79 18 131/67 97 02/04/18 14:16 99.4 F 68 18 138/71 100 - Physical Examination General: No Apparent Distress Cardiac: Positive: Reg Rate and Rhythm - Labs and Meds Coagulation 02/05/18 Range/Units 05:51 PT 14.8 (12.2-14.9) Sec. INR 1.10 (0.87-1.13)
[2018-02-05] MEDS: COUMADIN PO SCH (17:23)
[2018-02-06 06:30] LABS: INR 0.97 (0.87-1.13)
--- NOTE | 2018-02-06 09:10 | Progress Note ---
Assessment and Plan Assessment and plan: --Acute CVA; Patient completed the workup, unable to do MRI secondary to ICD Continue aspirin and Plavix and statin CT head; no acute infarct, multiple old infarcts Carotid Doppler; less than 50% stenosis Physical therapy occupational therapy Neurology following --Nonischemic cardiomyopathy; ejection fraction 15-20% Medical management, cardiology following --Nonspecific elevation of troponins; secondary to CHF, medical management --Status post ICD; functional supportive care, --Acute kidney injury; resolved --History of BPH; continue Proscar and Flomax --Cardiac arrhythmia; on amiodarone Coumadin INR subtherapeutic --Hypertension; heart rate controlled Continue current antihypertensives and when necessary medications --Moderate to severe malnutrition; nutrition supplements and supportive care --DVT prophylaxis; Lovenox until INR is therapeutic Consults and recommendations noted and appreciated Discharge planning family requests SNF placement Case management informed History Interval history: Patient seen and examined medical records reviewed No new events reported Alert awake oriented Vital signs reviewed Hospitalist Physical - Constitutional Vitals: Temp Pulse Resp BP Pulse Ox 98.5 F 74 20 144/88 98 02/06/18 07:58 02/06/18 07:58 02/06/18 07:58 02/06/18 07:58 02/06/18 07:58 General appearance: Present: no acute distress, well-nourished - EENT Eyes: Present: PERRL, EOM intact - Neck Neck: Present: supple, normal ROM - Respiratory Respiratory effort: normal Respiratory: negative: rales, rhonchi, wheezing - Cardiovascular Rhythm: regular Heart Sounds: Present: S1 & S2 - Extremities Extremities: no ischemia, No edema Peripheral Pulses: within normal limits - Abdominal General gastrointestinal: soft, non-tender, non-distended, normal bowel sounds - Integumentary Integumentary: Present: clear, warm - Psychiatric Psychiatric: appropriate mood/affect, cooperative - Neurologic Neurologic: other (CVA with residual left hemiparesis) Results - Labs CBC & Chem 7: 02/04/18 07:37 02/04/18 07:37 Labs: Laboratory Last Values WBC 7.4 K/mm3 (4.5-11.0) 02/04/18 07:37 RBC 3.55 M/mm3 (3.65-5.03) L 02/04/18 07:37 Hgb 10.3 gm/dl (11.8-15.2) L 02/04/18 07:37 Hct 31.7 % (35.5-45.6) L 02/04/18 07:37 MCV 89 fl (84-94) 02/04/18 07:37 MCH 29 pg (28-32) 02/04/18 07:37 MCHC 33 % (32-34) 02/04/18 07:37 RDW 16.0 % (13.2-15.2) H 02/04/18 07:37 Plt Count 155 K/mm3 (140-440) 02/04/18 07:37 Lymph % (Auto) 9.5 % (13.4-35.0) L 02/04/18 07:37 [place] % (Auto) 7.5 % (0.0-7.3) H 02/04/18 07:37 Eos % (Auto) 0.2 % (0.0-4.3) 02/04/18 07:37 Baso % (Auto) 0.3 % (0.0-1.8) 02/04/18 07:37 Lymph # 0.7 K/mm3 (1.2-5.4) L 02/04/18 07:37 [place] # 0.6 K/mm3 (0.0-0.8) 02/04/18 07:37 Eos # 0.0 K/mm3 (0.0-0.4) 02/04/18 07:37 Baso # 0.0 K/mm3 (0.0-0.1) 02/04/18 07:37 Seg Neutrophils % 82.5 % (40.0-70.0) H 02/04/18 07:37 Seg Neutrophils # 6.1 K/mm3 (1.8-7.7) 02/04/18 07:37 PT 13.4 Sec. (12.2-14.9) 02/06/18 05:28 INR 0.97 (0.87-1.13) 02/06/18 05:28 APTT 28.1 Sec. (24.2-36.6) 02/03/18 14:13 Thrombin Time 15.9 Sec. (15.1-19.6) 02/03/18 14:13 Sodium 141 mmol/L (137-145) 02/04/18 07:37 Potassium 4.1 mmol/L (3.6-5.0) 02/04/18 07:37 Chloride 106.1 mmol/L (98-107) 02/04/18 07:37 Carbon Dioxide 24 mmol/L (22-30) 02/04/18 07:37 Anion Gap 15 mmol/L 02/04/18 07:37 BUN 27 mg/dL (9-20) H 02/04/18 07:37 Creatinine 1.1 mg/dL (0.8-1.5) 02/04/18 07:37 Estimated GFR > 60 ml/min 02/04/18 07:37 BUN/Creatinine Ratio 25 % 02/04/18 07:37 Glucose 98 mg/dL (75-100) 02/04/18 07:37 POC Glucose 117 (70-105) H 02/03/18 13:41 Hemoglobin A1c 6.6 % (4-6) H 02/03/18 22:50 Calcium 8.2 mg/dL (8.4-10.2) L 02/04/18 07:37 Magnesium 2.30 mg/dL (1.7-2.3) 02/04/18 07:37 Total Bilirubin 0.40 mg/dL (0.1-1.2) 02/04/18 07:37 AST 252 units/L (5-40) H 02/04/18 07:37 ALT 69 units/L (7-56) H 02/04/18 07:37 Alkaline Phosphatase 77 units/L (35-129) 02/04/18 07:37 Total Creatine Kinase 62 units/L (55-170) 02/03/18 14:13 Troponin T 1.320 ng/mL (0.00-0.029) H* 02/05/18 00:56 Total Protein 5.6 g/dL (6.3-8.2) L 02/04/18 07:37 Albumin 2.9 g/dL (3.9-5) L 02/04/18 07:37 Albumin/Globulin Ratio 1.1 % 02/04/18 07:37 Triglycerides 49 mg/dL (2-149) 02/03/18 14:13 Cholesterol 127 mg/dL (50-199) 02/03/18 14:13 LDL Cholesterol Direct 62 mg/dL (50-130) 02/03/18 14:13 HDL Cholesterol 70 mg/dL (40-59) H 02/03/18 14:13 Cholesterol/HDL Ratio 1.81 % 02/03/18 14:13 Urine Color Yellow (Yellow) 02/03/18 14:54 Urine Turbidity Clear (Clear) 02/03/18 14:54 Urine pH 5.0 (5.0-7.0) 02/03/18 14:54 Ur Specific [place] 1.021 (1.003-1.030) 02/03/18 14:54 Urine Protein 30 mg/dl mg/dL (Negative) 02/03/18 14:54 Urine Glucose (UA) Neg mg/dL (Negative) 02/03/18 14:54 Urine Ketones Tr mg/dL (Negative) 02/03/18 14:54 Urine Blood Lg (Negative) 02/03/18 14:54 Urine Nitrite Neg (Negative) 02/03/18 14:54 Urine Bilirubin Neg (Negative) 02/03/18 14:54 Urine Urobilinogen < 2.0 mg/dL (<2.0) 02/03/18 14:54 Ur Leukocyte Esterase Neg (Negative) 02/03/18 14:54 Urine WBC (Auto) 2.0 /HPF (0.0-6.0) 02/03/18 14:54 Urine RBC (Auto) 4.0 /HPF (0.0-6.0) 02/03/18 14:54 Urine Mucus Few /HPF 02/03/18 14:54 Urine Yeast (Budding) 1+ /HPF 02/03/18 14:54 Phenytoin 0.8 ug/mL (10.0-20.0) L 02/03/18 14:13
[2018-02-06] MEDS: ARICEPT PO SCH (09:13)
[2018-02-06] MEDS: PEPCID PO SCH (09:13)
[2018-02-06] MEDS: FLOMAX PO SCH (09:13)
[2018-02-06] MEDS: PROSCAR PO SCH (09:13)
[2018-02-06] MEDS: DITROPAN PO SCH (09:13)
[2018-02-06] MEDS: PLAVIX PO SCH (09:13)
[2018-02-06] MEDS: VITAMIN D3 PO SCH (09:13)
[2018-02-06] MEDS: KEPPRA PO SCH ×2 (09:13→21:25)
[2018-02-06] MEDS: BABY ASPIRIN PO SCH (09:13)
[2018-02-06] MEDS: LOPRESSOR PO SCH ×2 (09:14→21:25)
[2018-02-06] MEDS: CORDARONE PO SCH ×2 (09:14→21:25)
[2018-02-06] MEDS: HCTZ PO SCH (09:14)
[2018-02-06] MEDS: ZESTRIL PO SCH (09:15)
[2018-02-06] MEDS: SODIUM CHLORIDE FLUSH SYRINGE 10 ML IV SCH ×2 (09:16→21:26)
--- NOTE | 2018-02-06 10:49 | Progress Note ---
Assessment and Plan Weakness - reason for admission TIA vs mini-stroke Prior CVA Dilated Cardiomyopathy EF 15-20% by echo 11/2017 Presence of AICD (Medtronic) NSTEMI No ACS symptoms reported Suspect troponin elevation to be non-specific in the setting of severe hypomagnesemia Paroxysmal atrial fibrillation on amiodarone for suppression. previously considered not a candidate for oral anticoagulation due to his severe anemia. Chronic elevated troponin Recommend: Medical therapy for his dilated cardiomyopathy, NSTEMI and paroxysmal atrial fibrillation. Patient is currently on asa, plavix and coumadin Would discontinue asa once INR > 2 Patient follows up at the [facility] Subjective Date of service: 02/06/18 Principal diagnosis: Acute CVA and elevated Cs Interval history: Patient denies chest pain or shortness of breath this morning No events noted on tele Objective Vital Signs Temp Pulse Pulse Resp BP Pulse Ox 02/06/18 10:00 72 72 20 98 02/06/18 09:15 74 144/88 02/06/18 09:14 74 144/88 02/06/18 07:58 98.5 F 74 20 144/88 98 02/06/18 02:25 98.6 F 69 18 139/83 100 02/06/18 01:00 70 18 98 02/05/18 22:00 70 02/05/18 21:47 64 147/89 02/05/18 19:20 98.6 F 80 20 129/78 98 - Physical Examination General: No Apparent Distress Neck: Positive: neck supple Cardiac: Positive: Reg Rate and Rhythm Lungs: Positive: Normal Exam - Labs and Meds Coagulation 02/06/18 Range/Units 05:28 PT 13.4 (12.2-14.9) Sec. INR 0.97 (0.87-1.13)
[2018-02-06] MEDS: COUMADIN PO SCH (17:45)
[2018-02-06] MEDS: LOVENOX SUB-Q SCH (21:26)
[2018-02-07 05:43] LABS: INR 1.03 (0.87-1.13)
[2018-02-07 05:50] LABS: Alanine Aminotransferase 55 units/L (7-56); Albumin 3.1 g/dL (3.9-5); BUN/Creatinine Ratio 16; Blood Urea Nitrogen 16 mg/dL (9-20); Calcium 8.3 mg/dL (8.4-10.2); Hemolysis Index 13
--- NOTE | 2018-02-07 08:10 | Progress Note ---
Assessment and Plan 1. Acute transient cerebral ischemic attack. 2. Dilated cardiomyopathy severe global hypokinesis of the left ventricle left ventricular ejection fraction of 15-20% 3. Paroxysmal atrial fibrillation 4. History of probable CVA 5. Presence of I CD. 6. Anemia Plan. Treatment with combination of antiplatelet therapy with Coumadin and monitor H& H closely. Subjective Date of service: 02/07/18 Principal diagnosis: Acute CVA and elevated Cs Interval history: No cardiac complains Objective Vital Signs Temp Pulse Pulse Resp BP Pulse Ox 02/07/18 03:24 98.3 F 66 18 115/72 97 02/07/18 02:42 82 02/06/18 22:00 20 02/06/18 21:25 75 120/65 02/06/18 19:48 98.4 F 73 18 95/63 98 02/06/18 13:21 98.3 F 63 20 105/61 98 02/06/18 10:00 72 72 20 98 02/06/18 09:15 74 144/88 02/06/18 09:14 74 144/88 - Physical Examination General: Appears Well, No Apparent Distress HEENT: Positive: Normocephaly, Mucus Membranes Moist Neck: Positive: neck supple. Negative: JVD/HJR Cardiac: Positive: Regular Rate, PMI, Laterally Displaced Lungs: Positive: clear to auscultation, No Wheeze, Rales, Rhonchi Abdomen: Positive: Unremarkable, Soft Extremities: Absent: edema - Labs and Meds Cardiac Enzymes 02/07/18 Range/Units 05:09 AST 75 H (5-40) units/L Coagulation 02/07/18 Range/Units 05:09 PT 14.0 (12.2-14.9) Sec. INR 1.03 (0.87-1.13) Comprehensive Metabolic Panel 02/07/18 Range/Units 05:09 Sodium 139 (137-145) mmol/L Potassium 4.1 (3.6-5.0) mmol/L Chloride 100.2 (98-107) mmol/L Carbon Dioxide 27 (22-30) mmol/L BUN 16 (9-20) mg/dL Creatinine 1.0 (0.8-1.5) mg/dL Glucose 95 (75-100) mg/dL Calcium 8.3 L (8.4-10.2) mg/dL AST 75 H (5-40) units/L ALT 55 (7-56) units/L Alkaline Phosphatase 87 (35-129) units/L Total Protein 5.5 L (6.3-8.2) g/dL Albumin 3.1 L (3.9-5) g/dL
[2018-02-07] MEDS: VITAMIN D3 PO SCH (09:35)
[2018-02-07] MEDS: CORDARONE PO SCH ×2 (09:36→22:32)
[2018-02-07] MEDS: PROSCAR PO SCH (09:36)
[2018-02-07] MEDS: LOPRESSOR PO SCH ×2 (09:37→22:32)
[2018-02-07] MEDS: ZESTRIL PO SCH (09:38)
[2018-02-07] MEDS: KEPPRA PO SCH ×2 (09:39→22:32)
[2018-02-07] MEDS: PLAVIX PO SCH (09:39)
[2018-02-07] MEDS: ARICEPT PO SCH (09:39)
[2018-02-07] MEDS: HCTZ PO SCH (09:40)
[2018-02-07] MEDS: DITROPAN PO SCH (09:40)
[2018-02-07] MEDS: PEPCID PO SCH (09:40)
[2018-02-07] MEDS: SODIUM CHLORIDE FLUSH SYRINGE 10 ML IV SCH ×2 (09:41→22:33)
[2018-02-07] MEDS: BABY ASPIRIN PO SCH (09:41)
[2018-02-07] MEDS: FLOMAX PO SCH (09:41)
--- NOTE | 2018-02-07 12:21 | Progress Note ---
Assessment and Plan Assessment and plan: --Acute CVA; Patient completed the workup, unable to do MRI secondary to ICD Continue aspirin and Plavix and statin ,CT head; no acute infarct, multiple old infarcts Carotid Doppler; less than 50% stenosis, Physical therapy occupational therapy Neurology following --History of CVA; left-sided hemiparesis --Nonischemic cardiomyopathy; ejection fraction 15-20% Medical management, cardiology following --Nonspecific elevation of troponins; secondary to CHF, medical management --Status post ICD; functional supportive care, --Acute kidney injury; resolved --History of BPH; continue Proscar and Flomax --Cardiac arrhythmia; on amiodarone Coumadin, INR subtherapeutic --Hypertension; heart rate controlled Continue current antihypertensives and when necessary medications --Moderate to severe malnutrition; nutrition supplements and supportive care --DVT prophylaxis; Lovenox until INR is therapeutic Consults and recommendations noted and appreciated Discharge planning family requests SNF placement Case management informed History Interval history: Patient seen and examined medical records reviewed No new events reported Feels better no new complaints Await SNF placement, Vital signs stable Hospitalist Physical - Constitutional Vitals: Temp Pulse Resp BP Pulse Ox 98.0 F 75 20 116/71 92 02/07/18 11:57 02/07/18 11:57 02/07/18 11:57 02/07/18 11:57 02/07/18 11:57 General appearance: Present: no acute distress, well-nourished - EENT Eyes: Present: PERRL, EOM intact - Neck Neck: Present: supple, normal ROM - Respiratory Respiratory effort: normal Respiratory: bilateral: diminished, negative: rales, rhonchi, wheezing - Cardiovascular Heart Sounds: Present: S1 & S2 - Extremities Extremities: no ischemia, No edema, abnormal (left-sided weakness) - Abdominal General gastrointestinal: soft, non-tender, non-distended, normal bowel sounds - Integumentary Integumentary: Present: clear, warm - Psychiatric Psychiatric: appropriate mood/affect, cooperative - Neurologic Neurologic: moves all extremities (left-sided hemiparesis) Results - Labs CBC & Chem 7: 02/04/18 07:37 02/07/18 05:09 Labs: Laboratory Last Values WBC 7.4 K/mm3 (4.5-11.0) 02/04/18 07:37 RBC 3.55 M/mm3 (3.65-5.03) L 02/04/18 07:37 Hgb 10.3 gm/dl (11.8-15.2) L 02/04/18 07:37 Hct 31.7 % (35.5-45.6) L 02/04/18 07:37 MCV 89 fl (84-94) 02/04/18 07:37 MCH 29 pg (28-32) 02/04/18 07:37 MCHC 33 % (32-34) 02/04/18 07:37 RDW 16.0 % (13.2-15.2) H 02/04/18 07:37 Plt Count 155 K/mm3 (140-440) 02/04/18 07:37 Lymph % (Auto) 9.5 % (13.4-35.0) L 02/04/18 07:37 [place] % (Auto) 7.5 % (0.0-7.3) H 02/04/18 07:37 Eos % (Auto) 0.2 % (0.0-4.3) 02/04/18 07:37 Baso % (Auto) 0.3 % (0.0-1.8) 02/04/18 07:37 Lymph # 0.7 K/mm3 (1.2-5.4) L 02/04/18 07:37 [place] # 0.6 K/mm3 (0.0-0.8) 02/04/18 07:37 Eos # 0.0 K/mm3 (0.0-0.4) 02/04/18 07:37 Baso # 0.0 K/mm3 (0.0-0.1) 02/04/18 07:37 Seg Neutrophils % 82.5 % (40.0-70.0) H 02/04/18 07:37 Seg Neutrophils # 6.1 K/mm3 (1.8-7.7) 02/04/18 07:37 PT 14.0 Sec. (12.2-14.9) 02/07/18 05:09 INR 1.03 (0.87-1.13) 02/07/18 05:09 APTT 28.1 Sec. (24.2-36.6) 02/03/18 14:13 Thrombin Time 15.9 Sec. (15.1-19.6) 02/03/18 14:13 Sodium 139 mmol/L (137-145) 02/07/18 05:09 Potassium 4.1 mmol/L (3.6-5.0) 02/07/18 05:09 Chloride 100.2 mmol/L (98-107) 02/07/18 05:09 Carbon Dioxide 27 mmol/L (22-30) 02/07/18 05:09 Anion Gap 16 mmol/L 02/07/18 05:09 BUN 16 mg/dL (9-20) 02/07/18 05:09 Creatinine 1.0 mg/dL (0.8-1.5) 02/07/18 05:09 Estimated GFR > 60 ml/min 02/07/18 05:09 BUN/Creatinine Ratio 16 % 02/07/18 05:09 Glucose 95 mg/dL (75-100) 02/07/18 05:09 POC Glucose 117 (70-105) H 02/03/18 13:41 Hemoglobin A1c 6.6 % (4-6) H 02/03/18 22:50 Calcium 8.3 mg/dL (8.4-10.2) L 02/07/18 05:09 Magnesium 2.30 mg/dL (1.7-2.3) 02/04/18 07:37 Total Bilirubin 0.70 mg/dL (0.1-1.2) 02/07/18 05:09 AST 75 units/L (5-40) H 02/07/18 05:09 ALT 55 units/L (7-56) 02/07/18 05:09 Alkaline Phosphatase 87 units/L (35-129) 02/07/18 05:09 Total Creatine Kinase 62 units/L (55-170) 02/03/18 14:13 Troponin T 1.320 ng/mL (0.00-0.029) H* 02/05/18 00:56 Total Protein 5.5 g/dL (6.3-8.2) L 02/07/18 05:09 Albumin 3.1 g/dL (3.9-5) L 02/07/18 05:09 Albumin/Globulin Ratio 1.3 % 02/07/18 05:09 Triglycerides 49 mg/dL (2-149) 02/03/18 14:13 Cholesterol 127 mg/dL (50-199) 02/03/18 14:13 LDL Cholesterol Direct 62 mg/dL (50-130) 02/03/18 14:13 HDL Cholesterol 70 mg/dL (40-59) H 02/03/18 14:13 Cholesterol/HDL Ratio 1.81 % 02/03/18 14:13 Urine Color Yellow (Yellow) 02/03/18 14:54 Urine Turbidity Clear (Clear) 02/03/18 14:54 Urine pH 5.0 (5.0-7.0) 02/03/18 14:54 Ur Specific [place] 1.021 (1.003-1.030) 02/03/18 14:54 Urine Protein 30 mg/dl mg/dL (Negative) 02/03/18 14:54 Urine Glucose (UA) Neg mg/dL (Negative) 02/03/18 14:54 Urine Ketones Tr mg/dL (Negative) 02/03/18 14:54 Urine Blood Lg (Negative) 02/03/18 14:54 Urine Nitrite Neg (Negative) 02/03/18 14:54 Urine Bilirubin Neg (Negative) 02/03/18 14:54 Urine Urobilinogen < 2.0 mg/dL (<2.0) 02/03/18 14:54 Ur Leukocyte Esterase Neg (Negative) 02/03/18 14:54 Urine WBC (Auto) 2.0 /HPF (0.0-6.0) 02/03/18 14:54 Urine RBC (Auto) 4.0 /HPF (0.0-6.0) 02/03/18 14:54 Urine Mucus Few /HPF 02/03/18 14:54 Urine Yeast (Budding) 1+ /HPF 02/03/18 14:54 Phenytoin 0.8 ug/mL (10.0-20.0) L 02/03/18 14:13
[2018-02-07] MEDS: COUMADIN PO SCH (17:05)
[2018-02-07] MEDS: LOVENOX SUB-Q SCH (22:33)
[2018-02-08 06:14] LABS: INR 1.12 (0.87-1.13)
--- NOTE | 2018-02-08 08:55 | Progress Note ---
Assessment and Plan 1. Acute transient cerebral ischemic attack. 2. Dilated cardiomyopathy severe global hypokinesis of the left ventricle left ventricular ejection fraction of 15-20% 3. Paroxysmal atrial fibrillation 4. History of probable CVA 5. Presence of ICD. 6. Anemia Plan. Treatment with combination of antiplatelet therapy with Coumadin and monitor H& H closely. Not a candidate for invasive management. Subjective Date of service: 02/08/18 Principal diagnosis: Acute CVA and elevated Cs Interval history: No cardiac complains Objective Vital Signs Temp Pulse Pulse Resp BP BP Pulse Ox 02/07/18 22:32 77 127/77 02/07/18 22:00 77 77 97 02/07/18 20:11 99.6 F 77 20 127/77 97 02/07/18 15:53 99.5 F 79 20 103/63 97 02/07/18 11:57 98.0 F 75 20 116/71 92 02/07/18 10:00 96 H 96 H 98 02/07/18 09:37 86 126/80 - Physical Examination General: Appears Well, No Apparent Distress HEENT: Positive: Normocephaly, Mucus Membranes Moist Neck: Positive: neck supple. Negative: JVD/HJR Cardiac: Positive: Regular Rate, S1/S2, S4, PMI, Laterally Displaced Lungs: Positive: clear to auscultation, No Wheeze, Rales, Rhonchi Neuro: Positive: Grossly Intact Abdomen: Positive: Unremarkable, Soft Extremities: Absent: edema - Labs and Meds Coagulation 02/08/18 Range/Units 05:32 PT 15.0 H (12.2-14.9) Sec. INR 1.12 (0.87-1.13)
[2018-02-08] MEDS: PLAVIX PO SCH (10:40)
[2018-02-08] MEDS: LOPRESSOR PO SCH ×2 (10:40→22:35)
[2018-02-08] MEDS: ZESTRIL PO SCH (10:40)
[2018-02-08] MEDS: PEPCID PO SCH (10:41)
[2018-02-08] MEDS: SODIUM CHLORIDE FLUSH SYRINGE 10 ML IV SCH ×2 (10:41→22:37)
[2018-02-08] MEDS: HCTZ PO SCH (10:41)
[2018-02-08] MEDS: PROSCAR PO SCH (10:41)
[2018-02-08] MEDS: DITROPAN PO SCH (10:41)
[2018-02-08] MEDS: CORDARONE PO SCH ×2 (10:41→22:36)
[2018-02-08] MEDS: KEPPRA PO SCH ×2 (10:41→22:35)
[2018-02-08] MEDS: FLOMAX PO SCH (10:41)
[2018-02-08] MEDS: ARICEPT PO SCH (10:41)
[2018-02-08] MEDS: BABY ASPIRIN PO SCH (10:41)
[2018-02-08] MEDS: VITAMIN D3 PO SCH (10:41)
[2018-02-08] MEDS: COUMADIN PO SCH ×2 (16:56)
[2018-02-08] MEDS ORDERED: COUMADIN PO SCH (17:00)
--- NOTE | 2018-02-08 19:30 | Progress Note ---
Assessment and Plan Assessment and plan: --Acute CVA; left hemiparesis Patient completed the workup, unable to do MRI secondary to ICD Continue aspirin and Plavix and statin ,CT head; no acute infarct, multiple old infarcts Carotid Doppler; less than 50% stenosis, Physical therapy occupational therapy Neurology following --Nonischemic cardiomyopathy; ejection fraction 15-20% Medical management, cardiology following --Nonspecific elevation of troponins; secondary to CHF, medical management --Status post ICD; functional supportive care, --Acute kidney injury; resolved --History of BPH; continue Proscar and Flomax --Cardiac arrhythmia; on amiodarone Coumadin, INR subtherapeutic --Hypertension; heart rate controlled Continue current antihypertensives and when necessary medications --Moderate to severe malnutrition; nutrition supplements and supportive care --DVT prophylaxis; Lovenox until INR is therapeutic Consults and recommendations noted and appreciated Physical therapy occupational therapy rehabilitation Discharge planning family requests SNF placement Case management informed, processing the paperwork Discussed with the caregiver extensively patient's condition treatment and discharge planning History Interval history: Patient Seen and examined medical records reviewed No new events reported Alert awake responding to simple questions Not in acute distress, vital signs reviewed Hospitalist Physical - Constitutional Vitals: Temp Pulse Resp BP Pulse Ox 99.7 F H 80 20 101/61 98 02/08/18 14:32 02/08/18 14:32 02/08/18 14:32 02/08/18 14:32 02/08/18 14:32 General appearance: Present: no acute distress, well-nourished - EENT Eyes: Present: PERRL, EOM intact - Neck Neck: Present: supple, normal ROM - Respiratory Respiratory effort: normal Respiratory: bilateral: diminished, negative: rales, rhonchi, wheezing - Cardiovascular Rhythm: regular Heart Sounds: Present: S1 & S2 - Extremities Extremities: no ischemia, No edema - Abdominal General gastrointestinal: soft, non-tender, non-distended, normal bowel sounds - Integumentary Integumentary: Present: clear, warm - Psychiatric Psychiatric: appropriate mood/affect, cooperative - Neurologic Neurologic: other (residual left-sided hemiparesis) Results - Labs CBC & Chem 7: 02/04/18 07:37 02/07/18 05:09 Labs: Laboratory Last Values WBC 7.4 K/mm3 (4.5-11.0) 02/04/18 07:37 RBC 3.55 M/mm3 (3.65-5.03) L 02/04/18 07:37 Hgb 10.3 gm/dl (11.8-15.2) L 02/04/18 07:37 Hct 31.7 % (35.5-45.6) L 02/04/18 07:37 MCV 89 fl (84-94) 02/04/18 07:37 MCH 29 pg (28-32) 02/04/18 07:37 MCHC 33 % (32-34) 02/04/18 07:37 RDW 16.0 % (13.2-15.2) H 02/04/18 07:37 Plt Count 155 K/mm3 (140-440) 02/04/18 07:37 Lymph % (Auto) 9.5 % (13.4-35.0) L 02/04/18 07:37 [place] % (Auto) 7.5 % (0.0-7.3) H 02/04/18 07:37 Eos % (Auto) 0.2 % (0.0-4.3) 02/04/18 07:37 Baso % (Auto) 0.3 % (0.0-1.8) 02/04/18 07:37 Lymph # 0.7 K/mm3 (1.2-5.4) L 02/04/18 07:37 [place] # 0.6 K/mm3 (0.0-0.8) 02/04/18 07:37 Eos # 0.0 K/mm3 (0.0-0.4) 02/04/18 07:37 Baso # 0.0 K/mm3 (0.0-0.1) 02/04/18 07:37 Seg Neutrophils % 82.5 % (40.0-70.0) H 02/04/18 07:37 Seg Neutrophils # 6.1 K/mm3 (1.8-7.7) 02/04/18 07:37 PT 15.0 Sec. (12.2-14.9) H 02/08/18 05:32 INR 1.12 (0.87-1.13) 02/08/18 05:32 APTT 28.1 Sec. (24.2-36.6) 02/03/18 14:13 Thrombin Time 15.9 Sec. (15.1-19.6) 02/03/18 14:13 Sodium 139 mmol/L (137-145) 02/07/18 05:09 Potassium 4.1 mmol/L (3.6-5.0) 02/07/18 05:09 Chloride 100.2 mmol/L (98-107) 02/07/18 05:09 Carbon Dioxide 27 mmol/L (22-30) 02/07/18 05:09 Anion Gap 16 mmol/L 02/07/18 05:09 BUN 16 mg/dL (9-20) 02/07/18 05:09 Creatinine 1.0 mg/dL (0.8-1.5) 02/07/18 05:09 Estimated GFR > 60 ml/min 02/07/18 05:09 BUN/Creatinine Ratio 16 % 02/07/18 05:09 Glucose 95 mg/dL (75-100) 02/07/18 05:09 POC Glucose 117 (70-105) H 02/03/18 13:41 Hemoglobin A1c 6.6 % (4-6) H 02/03/18 22:50 Calcium 8.3 mg/dL (8.4-10.2) L 02/07/18 05:09 Magnesium 2.30 mg/dL (1.7-2.3) 02/04/18 07:37 Total Bilirubin 0.70 mg/dL (0.1-1.2) 02/07/18 05:09 AST 75 units/L (5-40) H 02/07/18 05:09 ALT 55 units/L (7-56) 02/07/18 05:09 Alkaline Phosphatase 87 units/L (35-129) 02/07/18 05:09 Total Creatine Kinase 62 units/L (55-170) 02/03/18 14:13 Troponin T 1.320 ng/mL (0.00-0.029) H* 02/05/18 00:56 Total Protein 5.5 g/dL (6.3-8.2) L 02/07/18 05:09 Albumin 3.1 g/dL (3.9-5) L 02/07/18 05:09 Albumin/Globulin Ratio 1.3 % 02/07/18 05:09 Triglycerides 49 mg/dL (2-149) 02/03/18 14:13 Cholesterol 127 mg/dL (50-199) 02/03/18 14:13 LDL Cholesterol Direct 62 mg/dL (50-130) 02/03/18 14:13 HDL Cholesterol 70 mg/dL (40-59) H 02/03/18 14:13 Cholesterol/HDL Ratio 1.81 % 02/03/18 14:13 Urine Color Yellow (Yellow) 02/03/18 14:54 Urine Turbidity Clear (Clear) 02/03/18 14:54 Urine pH 5.0 (5.0-7.0) 02/03/18 14:54 Ur Specific [place] 1.021 (1.003-1.030) 02/03/18 14:54 Urine Protein 30 mg/dl mg/dL (Negative) 02/03/18 14:54 Urine Glucose (UA) Neg mg/dL (Negative) 02/03/18 14:54 Urine Ketones Tr mg/dL (Negative) 02/03/18 14:54 Urine Blood Lg (Negative) 02/03/18 14:54 Urine Nitrite Neg (Negative) 02/03/18 14:54 Urine Bilirubin Neg (Negative) 02/03/18 14:54 Urine Urobilinogen < 2.0 mg/dL (<2.0) 02/03/18 14:54 Ur Leukocyte Esterase Neg (Negative) 02/03/18 14:54 Urine WBC (Auto) 2.0 /HPF (0.0-6.0) 02/03/18 14:54 Urine RBC (Auto) 4.0 /HPF (0.0-6.0) 02/03/18 14:54 Urine Mucus Few /HPF 02/03/18 14:54 Urine Yeast (Budding) 1+ /HPF 02/03/18 14:54 Phenytoin 0.8 ug/mL (10.0-20.0) L 02/03/18 14:13
[2018-02-08] MEDS: LOVENOX SUB-Q SCH (22:36)
[2018-02-09 05:12] LABS: INR 1.19 (0.87-1.13)
--- NOTE | 2018-02-09 08:57 | Progress Note ---
Assessment and Plan 1. Acute transient cerebral ischemic attack. 2. Dilated cardiomyopathy severe global hypokinesis of the left ventricle left ventricular ejection fraction of 15-20% 3. Paroxysmal atrial fibrillation 4. History of probable CVA 5. Presence of ICD. 6. Anemia Plan. Treatment with combination of antiplatelet therapy with Coumadin and monitor H& H closely. Not a candidate for invasive management. Subjective Date of service: 02/09/18 Principal diagnosis: Acute CVA and elevated Cs Interval history: No cardiac complains Objective Vital Signs Temp Pulse Resp BP BP Pulse Ox 02/09/18 07:49 99.3 F 77 22 128/82 98 02/09/18 03:19 98.2 F 75 20 127/81 95 02/08/18 22:35 81 133/75 02/08/18 22:00 81 99 02/08/18 20:46 99.5 F 97 H 20 137/67 95 02/08/18 20:08 98.9 F 81 16 133/75 96 02/08/18 14:32 99.7 F H 80 20 101/61 98 02/08/18 10:40 85 130/72 02/08/18 10:00 75 02/08/18 09:26 99.8 F H 85 20 130/72 99 02/08/18 09:21 99.8 F H 20 130/72 - Physical Examination General: Appears Well, No Apparent Distress HEENT: Positive: Normocephaly, Mucus Membranes Moist Neck: Positive: neck supple. Negative: JVD/HJR Cardiac: Positive: Reg Rate and Rhythm, Regular Rate, S1/S2, PMI, Laterally Displaced Lungs: Positive: clear to auscultation, No Wheeze, Rales, Rhonchi Neuro: Positive: Grossly Intact, Motor Function Intact Abdomen: Positive: Unremarkable, Soft Extremities: Absent: edema - Labs and Meds Coagulation 02/09/18 Range/Units 04:44 PT 15.8 H (12.2-14.9) Sec. INR 1.19 H (0.87-1.13)
[2018-02-09] MEDS: ZESTRIL PO SCH (09:03)
[2018-02-09] MEDS: HCTZ PO SCH (09:04)
[2018-02-09] MEDS: VITAMIN D3 PO SCH (09:04)
[2018-02-09] MEDS: PEPCID PO SCH (09:04)
[2018-02-09] MEDS: CORDARONE PO SCH ×2 (09:04→22:19)
[2018-02-09] MEDS: LOPRESSOR PO SCH ×2 (09:04→22:20)
[2018-02-09] MEDS: PROSCAR PO SCH (09:04)
[2018-02-09] MEDS: FLOMAX PO SCH (09:04)
[2018-02-09] MEDS: PLAVIX PO SCH (09:04)
[2018-02-09] MEDS: KEPPRA PO SCH ×2 (09:04→22:19)
[2018-02-09] MEDS: BABY ASPIRIN PO SCH (09:05)
[2018-02-09] MEDS: DITROPAN PO SCH (09:05)
[2018-02-09] MEDS: ARICEPT PO SCH (09:05)
[2018-02-09] MEDS: SODIUM CHLORIDE FLUSH SYRINGE 10 ML IV SCH ×2 (09:05→22:21)
[2018-02-09] MEDS: COUMADIN PO SCH ×2 (17:01)
--- NOTE | 2018-02-09 17:50 | Progress Note ---
Assessment and Plan Assessment and plan: --Acute CVA; left hemiparesis unable to do MRI secondary to ICD, on aspirin and Plavix and statin , CT head; no acute infarct, multiple old infarcts,Carotid Doppler; l< 50% stenosis, Physical therapy occupational therapy Neurology evaluated --Nonischemic cardiomyopathy; ejection fraction 15-20% Medical management, cardiology following --Nonspecific elevation of troponins; secondary to CHF, medical management --Status post ICD; functional supportive care, --Acute kidney injury; resolved --History of BPH; continue Proscar and Flomax --Cardiac arrhythmia; on amiodarone Coumadin, INR subtherapeutic --Hypertension; heart rate controlled Continue current antihypertensives and when necessary medications --Moderate to severe malnutrition; nutrition supplements and supportive care --DVT prophylaxis; Lovenox until INR is therapeutic Consults and recommendations noted and appreciated Physical therapy occupational therapy rehabilitation Discharge planning patient and family requests SNF/rehabilitation placement Case management processing the placement Patient is medically stable for discharge pending placement Hospitalist Physical - Constitutional Vitals: Temp Pulse Resp BP Pulse Ox 97 F L 77 22 97/58 98 02/09/18 16:08 02/09/18 16:08 02/09/18 16:08 02/09/18 16:08 02/09/18 16:08 General appearance: Present: no acute distress, well-nourished - EENT Eyes: Present: PERRL, EOM intact - Neck Neck: Present: supple, normal ROM - Respiratory Respiratory effort: normal Respiratory: negative: rales, rhonchi, wheezing - Cardiovascular Rhythm: regular Heart Sounds: Present: S1 & S2 - Extremities Extremities: no ischemia Extremity abnormal: edema - Abdominal General gastrointestinal: soft, non-tender, non-distended, normal bowel sounds - Integumentary Integumentary: Present: clear, warm - Psychiatric Psychiatric: appropriate mood/affect, cooperative - Neurologic Neurologic: other (left sided hemiparesis) Results - Labs CBC & Chem 7: 02/04/18 07:37 02/07/18 05:09 Labs: Laboratory Last Values WBC 7.4 K/mm3 (4.5-11.0) 02/04/18 07:37 RBC 3.55 M/mm3 (3.65-5.03) L 02/04/18 07:37 Hgb 10.3 gm/dl (11.8-15.2) L 02/04/18 07:37 Hct 31.7 % (35.5-45.6) L 02/04/18 07:37 MCV 89 fl (84-94) 02/04/18 07:37 MCH 29 pg (28-32) 02/04/18 07:37 MCHC 33 % (32-34) 02/04/18 07:37 RDW 16.0 % (13.2-15.2) H 02/04/18 07:37 Plt Count 155 K/mm3 (140-440) 02/04/18 07:37 Lymph % (Auto) 9.5 % (13.4-35.0) L 02/04/18 07:37 [place] % (Auto) 7.5 % (0.0-7.3) H 02/04/18 07:37 Eos % (Auto) 0.2 % (0.0-4.3) 02/04/18 07:37 Baso % (Auto) 0.3 % (0.0-1.8) 02/04/18 07:37 Lymph # 0.7 K/mm3 (1.2-5.4) L 02/04/18 07:37 [place] # 0.6 K/mm3 (0.0-0.8) 02/04/18 07:37 Eos # 0.0 K/mm3 (0.0-0.4) 02/04/18 07:37 Baso # 0.0 K/mm3 (0.0-0.1) 02/04/18 07:37 Seg Neutrophils % 82.5 % (40.0-70.0) H 02/04/18 07:37 Seg Neutrophils # 6.1 K/mm3 (1.8-7.7) 02/04/18 07:37 PT 15.8 Sec. (12.2-14.9) H 02/09/18 04:44 INR 1.19 (0.87-1.13) H 02/09/18 04:44 APTT 28.1 Sec. (24.2-36.6) 02/03/18 14:13 Thrombin Time 15.9 Sec. (15.1-19.6) 02/03/18 14:13 Sodium 139 mmol/L (137-145) 02/07/18 05:09 Potassium 4.1 mmol/L (3.6-5.0) 02/07/18 05:09 Chloride 100.2 mmol/L (98-107) 02/07/18 05:09 Carbon Dioxide 27 mmol/L (22-30) 02/07/18 05:09 Anion Gap 16 mmol/L 02/07/18 05:09 BUN 16 mg/dL (9-20) 02/07/18 05:09 Creatinine 1.0 mg/dL (0.8-1.5) 02/07/18 05:09 Estimated GFR > 60 ml/min 02/07/18 05:09 BUN/Creatinine Ratio 16 % 02/07/18 05:09 Glucose 95 mg/dL (75-100) 02/07/18 05:09 POC Glucose 117 (70-105) H 02/03/18 13:41 Hemoglobin A1c 6.6 % (4-6) H 02/03/18 22:50 Calcium 8.3 mg/dL (8.4-10.2) L 02/07/18 05:09 Magnesium 2.30 mg/dL (1.7-2.3) 02/04/18 07:37 Total Bilirubin 0.70 mg/dL (0.1-1.2) 02/07/18 05:09 AST 75 units/L (5-40) H 02/07/18 05:09 ALT 55 units/L (7-56) 02/07/18 05:09 Alkaline Phosphatase 87 units/L (35-129) 02/07/18 05:09 Total Creatine Kinase 62 units/L (55-170) 02/03/18 14:13 Troponin T 1.320 ng/mL (0.00-0.029) H* 02/05/18 00:56 Total Protein 5.5 g/dL (6.3-8.2) L 02/07/18 05:09 Albumin 3.1 g/dL (3.9-5) L 02/07/18 05:09 Albumin/Globulin Ratio 1.3 % 02/07/18 05:09 Triglycerides 49 mg/dL (2-149) 02/03/18 14:13 Cholesterol 127 mg/dL (50-199) 02/03/18 14:13 LDL Cholesterol Direct 62 mg/dL (50-130) 02/03/18 14:13 HDL Cholesterol 70 mg/dL (40-59) H 02/03/18 14:13 Cholesterol/HDL Ratio 1.81 % 02/03/18 14:13 Urine Color Yellow (Yellow) 02/03/18 14:54 Urine Turbidity Clear (Clear) 02/03/18 14:54 Urine pH 5.0 (5.0-7.0) 02/03/18 14:54 Ur Specific [place] 1.021 (1.003-1.030) 02/03/18 14:54 Urine Protein 30 mg/dl mg/dL (Negative) 02/03/18 14:54 Urine Glucose (UA) Neg mg/dL (Negative) 02/03/18 14:54 Urine Ketones Tr mg/dL (Negative) 02/03/18 14:54 Urine Blood Lg (Negative) 02/03/18 14:54 Urine Nitrite Neg (Negative) 02/03/18 14:54 Urine Bilirubin Neg (Negative) 02/03/18 14:54 Urine Urobilinogen < 2.0 mg/dL (<2.0) 02/03/18 14:54 Ur Leukocyte Esterase Neg (Negative) 02/03/18 14:54 Urine WBC (Auto) 2.0 /HPF (0.0-6.0) 02/03/18 14:54 Urine RBC (Auto) 4.0 /HPF (0.0-6.0) 02/03/18 14:54 Urine Mucus Few /HPF 02/03/18 14:54 Urine Yeast (Budding) 1+ /HPF 02/03/18 14:54 Phenytoin 0.8 ug/mL (10.0-20.0) L 02/03/18 14:13
[2018-02-09] MEDS: LOVENOX SUB-Q SCH (22:19)
--- NOTE | 2018-02-10 10:48 | Progress Note ---
Assessment and Plan Weakness TIA vs CVA. re-initiated on low dose warfarin. Prior CVA Hx of severe anemia Dilated Cardiomyopathy EF 15-20% by echo 11/2017 Presence of AICD([employer]) Paroxysmal atrial fibrillation on amiodarone for suppression. previously considered not a candidate for oral anticoagualtion due to his severe anemia. Elevated troponin suspect troponin elevation to be non-specific in the setting of severe hypomagnesemia Recommend: Continue medical therapy for his dilated cardiomyopathy and paroxysmal atrial fibrillation. Patient is currently on asa, plavix and coumadin. Would discontinue asa once INR > 2. [facility] Subjective Date of service: 02/10/18 Principal diagnosis: Acute CVA and elevated Cs Interval history: Patient is resting in bed comfortably. He denies shortness of breath and chest pain. Objective Vital Signs Temp Pulse Resp BP BP Pulse Ox 02/10/18 08:37 98.1 F 79 16 137/85 96 02/09/18 22:20 82 123/75 02/09/18 20:57 98.6 F 82 20 130/75 97 02/09/18 20:34 77 02/09/18 16:08 97 F L 77 22 97/58 98 02/09/18 15:55 97.0 F L 80 22 97/58 98 - Physical Examination General: No Apparent Distress Cardiac: Positive: Reg Rate and Rhythm Neuro: Positive: Weakness
[2018-02-10] MEDS: HCTZ PO SCH (10:58)
[2018-02-10] MEDS: PEPCID PO SCH (10:58)
[2018-02-10] MEDS: KEPPRA PO SCH ×2 (10:58→22:52)
[2018-02-10] MEDS: DITROPAN PO SCH (10:58)
[2018-02-10] MEDS: CORDARONE PO SCH ×2 (10:58→22:52)
[2018-02-10] MEDS: PROSCAR PO SCH (10:58)
[2018-02-10] MEDS: ARICEPT PO SCH (10:58)
[2018-02-10] MEDS: VITAMIN D3 PO SCH (10:59)
[2018-02-10] MEDS: BABY ASPIRIN PO SCH (10:59)
[2018-02-10] MEDS: LOPRESSOR PO SCH ×2 (10:59→22:52)
[2018-02-10] MEDS: FLOMAX PO SCH (10:59)
[2018-02-10] MEDS: PLAVIX PO SCH (10:59)
[2018-02-10] MEDS: ZESTRIL PO SCH (11:00)
[2018-02-10] MEDS: SODIUM CHLORIDE FLUSH SYRINGE 10 ML IV SCH ×2 (11:00→22:53)
--- NOTE | 2018-02-10 15:20 | Discharge Summary ---
Providers - Providers Date of Admission: 02/03/18 16:10 Date of discharge: 02/10/18 Attending physician: TOD CASTREJON 02/03/18 13:36 Consult to Physician [CONS] Urgent Comment: Kam Consulting Provider: JASMINE ROD Physician Instructions: consult was called to [id number] Reason For Exam: cva 02/03/18 22:53 Occupational Therapy Evaluate and Treat [CONS] Routine Comment: Reason For Exam: Neuro deficits Physical Therapy Evaluation and Treat [CONS] Routine Comment: Reason For Exam: Neuro deficits 02/03/18 22:57 Consult to Physician [CONS] Routine Comment: KAM Consulting Provider: SKYE NIELSON Physician Instructions: CONSULT WAS CALLED TO [id number] Reason For Exam: CVA 02/04/18 14:57 Consult to Physician [CONS] Routine Comment: Consulting Provider: WILMA FU Physician Instructions: Reason For Exam: cva 02/04/18 15:44 Speech Therapy Evaluation and Treat [CONS] Routine Reason For Exam: CVA Primary care physician: DIRECTOR OF CUSTOMER SERVICE Hospitalization Condition: Stable Disposition: DC/[place]-03 SNF [facility] Time spent for discharge: 35 min Core Measure Documentation - Palliative Care Palliative Care/ Comfort Measures: Not Applicable - Core Measures Any of the following diagnoses?: stroke - Stroke Discharge Requirements Statin for LDL = or >70 mg/dl on DC: No Anticoag for atrial fib/atrial flutter: Not Applicable Antithrombotic for ischemic stroke: Yes Exam - Constitutional Vitals: Temp Pulse Resp BP Pulse Ox 98.1 F 79 16 137/85 96 02/10/18 08:37 02/10/18 11:00 02/10/18 08:37 02/10/18 11:00 02/10/18 08:37 General appearance: Present: no acute distress, well-nourished - EENT Eyes: Present: PERRL - Neck Neck: Present: supple, normal ROM - Respiratory Respiratory effort: normal Respiratory: negative: rales, rhonchi, wheezing - Cardiovascular Rhythm: regular Heart Sounds: Present: S1 & S2 - Extremities Extremities: no ischemia, No edema - Abdominal General gastrointestinal: Present: soft, non-tender, non-distended, normal bowel sounds - Integumentary Integumentary: Present: clear, warm - Musculoskeletal Musculoskeletal: left sided weakness - Psychiatric Psychiatric: appropriate mood/affect, cooperative - Neurologic Neurologic: other (right-sided hemiparesis) Plan Activity: advance as tolerated, fall precautions Diet: other (cardiac diet) Special Instructions: physical therapy, occupational therapy Additional Instructions: Fall precautions. Physical therapy occupational therapy. Frequent check of INR, target level 2-3 Follow up with: PRIMARY CAREMD [Primary Care Provider] - 3-5 Days CHI PATRICIA MD [Staff Physician] - 7 Days Forms: Warfarin Discharge Instruction Prescriptions: Clopidogrel [Plavix] 75 mg PO QDAY #30 tablet
[2018-02-10 16:29] LABS: Basophils % (Auto) 0.3 % (0.0-1.8); Eosinophils # (Auto) 0.1 K/mm3 (0.0-0.4); Eosinophils % (Auto) 2.4 % (0.0-4.3); Hematocrit 34.3 % (35.5-45.6); Hemoglobin 11.4 gm/dl (11.8-15.2); Lymphocytes # (Auto) 0.9 K/mm3 (1.2-5.4); Lymphocytes % (Auto) 16.5 % (13.4-35.0); Mean Corpuscular HGB Conc 33 % (32-34); Mean Corpuscular Hemoglobin 29 pg (28-32); Mean Corpuscular Volume 88 fl (84-94); Monocytes # (Auto) 0.7 K/mm3 (0.0-0.8); Platelet Count 223 K/mm3 (140-440); Red Blood Count 3.89 M/mm3 (3.65-5.03); Red Cell Distribution Width 15.5 % (13.2-15.2)
[2018-02-10 16:34] LABS: INR 1.22 (0.87-1.13)
[2018-02-10 16:56] LABS: BUN/Creatinine Ratio 16; Blood Urea Nitrogen 19 mg/dL (9-20); Calcium 8.3 mg/dL (8.4-10.2); Hemolysis Index 2
--- NOTE | 2018-02-10 18:21 | Progress Note ---
Assessment and Plan Assessment and plan: --Acute CVA; left hemiparesis unable to do MRI secondary to ICD, on aspirin and Plavix and statin , CT head; no acute infarct, multiple old infarcts,Carotid Doppler; l< 50% stenosis, Physical therapy occupational therapy Neurology evaluated --Nonischemic cardiomyopathy; ejection fraction 15-20% Medical management, cardiology following --Nonspecific elevation of troponins; secondary to CHF, medical management --Status post ICD; functional supportive care, --Acute kidney injury; resolved --History of BPH; continue Proscar and Flomax --Cardiac arrhythmia; on amiodarone Coumadin, INR subtherapeutic --Hypertension; heart rate controlled Continue current antihypertensives and when necessary medications --Moderate to severe malnutrition; nutrition supplements and supportive care --DVT prophylaxis; Lovenox until INR is therapeutic Consults and recommendations noted and appreciated Physical therapy occupational therapy rehabilitation Discharge planning patient and family requests SNF/rehabilitation placement Case management processing the placement Patient is medically stable for discharge pending placement History Interval history: Patient seen and examined medical records reviewed No new events reported Patient is medically stable to be discharged and transferred to SNF Vital signs reviewed stable Hospitalist Physical - Constitutional Vitals: Temp Pulse Resp BP Pulse Ox 98.0 F 69 18 116/78 98 02/10/18 13:44 02/10/18 13:44 02/10/18 13:44 02/10/18 13:44 02/10/18 13:44 General appearance: Present: no acute distress, well-nourished - EENT Eyes: Present: PERRL, EOM intact - Neck Neck: Present: supple, normal ROM - Respiratory Respiratory effort: normal Respiratory: bilateral: diminished, negative: rales, rhonchi, wheezing - Cardiovascular Rhythm: regular Heart Sounds: Present: S1 & S2 - Extremities Extremities: no ischemia, No edema - Abdominal General gastrointestinal: soft, non-tender, non-distended, normal bowel sounds - Integumentary Integumentary: Present: clear, warm - Psychiatric Psychiatric: appropriate mood/affect, cooperative - Neurologic Neurologic: other (left-sided hemiparesis) Results - Labs CBC & Chem 7: 02/10/18 15:45 02/10/18 15:45 Labs: Laboratory Last Values WBC 5.4 K/mm3 (4.5-11.0) 02/10/18 15:45 RBC 3.89 M/mm3 (3.65-5.03) 02/10/18 15:45 Hgb 11.4 gm/dl (11.8-15.2) L 02/10/18 15:45 Hct 34.3 % (35.5-45.6) L 02/10/18 15:45 MCV 88 fl (84-94) 02/10/18 15:45 MCH 29 pg (28-32) 02/10/18 15:45 MCHC 33 % (32-34) 02/10/18 15:45 RDW 15.5 % (13.2-15.2) H 02/10/18 15:45 Plt Count 223 K/mm3 (140-440) 02/10/18 15:45 Lymph % (Auto) 16.5 % (13.4-35.0) 02/10/18 15:45 [place] % (Auto) 13.0 % (0.0-7.3) H 02/10/18 15:45 Eos % (Auto) 2.4 % (0.0-4.3) 02/10/18 15:45 Baso % (Auto) 0.3 % (0.0-1.8) 02/10/18 15:45 Lymph # 0.9 K/mm3 (1.2-5.4) L 02/10/18 15:45 [place] # 0.7 K/mm3 (0.0-0.8) 02/10/18 15:45 Eos # 0.1 K/mm3 (0.0-0.4) 02/10/18 15:45 Baso # 0.0 K/mm3 (0.0-0.1) 02/10/18 15:45 Seg Neutrophils % 67.8 % (40.0-70.0) 02/10/18 15:45 Seg Neutrophils # 3.7 K/mm3 (1.8-7.7) 02/10/18 15:45 PT 16.1 Sec. (12.2-14.9) H 02/10/18 15:45 INR 1.22 (0.87-1.13) H 02/10/18 15:45 APTT 28.1 Sec. (24.2-36.6) 02/03/18 14:13 Thrombin Time 15.9 Sec. (15.1-19.6) 02/03/18 14:13 Sodium 137 mmol/L (137-145) 02/10/18 15:45 Potassium 4.2 mmol/L (3.6-5.0) 02/10/18 15:45 Chloride 101.7 mmol/L (98-107) 02/10/18 15:45 Carbon Dioxide 27 mmol/L (22-30) 02/10/18 15:45 Anion Gap 13 mmol/L 02/10/18 15:45 BUN 19 mg/dL (9-20) 02/10/18 15:45 Creatinine 1.2 mg/dL (0.8-1.5) 02/10/18 15:45 Estimated GFR > 60 ml/min 02/10/18 15:45 BUN/Creatinine Ratio 16 % 02/10/18 15:45 Glucose 87 mg/dL (75-100) 02/10/18 15:45 POC Glucose 117 (70-105) H 02/03/18 13:41 Hemoglobin A1c 6.6 % (4-6) H 02/03/18 22:50 Calcium 8.3 mg/dL (8.4-10.2) L 02/10/18 15:45 Magnesium 2.30 mg/dL (1.7-2.3) 02/04/18 07:37 Total Bilirubin 0.70 mg/dL (0.1-1.2) 02/07/18 05:09 AST 75 units/L (5-40) H 02/07/18 05:09 ALT 55 units/L (7-56) 02/07/18 05:09 Alkaline Phosphatase 87 units/L (35-129) 02/07/18 05:09 Total Creatine Kinase 62 units/L (55-170) 02/03/18 14:13 Troponin T 1.320 ng/mL (0.00-0.029) H* 02/05/18 00:56 Total Protein 5.5 g/dL (6.3-8.2) L 02/07/18 05:09 Albumin 3.1 g/dL (3.9-5) L 02/07/18 05:09 Albumin/Globulin Ratio 1.3 % 02/07/18 05:09 Triglycerides 49 mg/dL (2-149) 02/03/18 14:13 Cholesterol 127 mg/dL (50-199) 02/03/18 14:13 LDL Cholesterol Direct 62 mg/dL (50-130) 02/03/18 14:13 HDL Cholesterol 70 mg/dL (40-59) H 02/03/18 14:13 Cholesterol/HDL Ratio 1.81 % 02/03/18 14:13 Urine Color Yellow (Yellow) 02/03/18 14:54 Urine Turbidity Clear (Clear) 02/03/18 14:54 Urine pH 5.0 (5.0-7.0) 02/03/18 14:54 Ur Specific [place] 1.021 (1.003-1.030) 02/03/18 14:54 Urine Protein 30 mg/dl mg/dL (Negative) 02/03/18 14:54 Urine Glucose (UA) Neg mg/dL (Negative) 02/03/18 14:54 Urine Ketones Tr mg/dL (Negative) 02/03/18 14:54 Urine Blood Lg (Negative) 02/03/18 14:54 Urine Nitrite Neg (Negative) 02/03/18 14:54 Urine Bilirubin Neg (Negative) 02/03/18 14:54 Urine Urobilinogen < 2.0 mg/dL (<2.0) 02/03/18 14:54 Ur Leukocyte Esterase Neg (Negative) 02/03/18 14:54 Urine WBC (Auto) 2.0 /HPF (0.0-6.0) 02/03/18 14:54 Urine RBC (Auto) 4.0 /HPF (0.0-6.0) 02/03/18 14:54 Urine Mucus Few /HPF 02/03/18 14:54 Urine Yeast (Budding) 1+ /HPF 02/03/18 14:54 Phenytoin 0.8 ug/mL (10.0-20.0) L 02/03/18 14:13
[2018-02-10] MEDS: COUMADIN PO SCH (18:50)
[2018-02-10] MEDS: LOVENOX SUB-Q SCH (22:52)
[2018-02-11 07:02] LABS: INR 1.23 (0.87-1.13)
[2018-02-11] MEDS: ZESTRIL PO SCH (09:45)
[2018-02-11] MEDS: DITROPAN PO SCH (09:45)
[2018-02-11] MEDS: PEPCID PO SCH (09:45)
[2018-02-11] MEDS: PLAVIX PO SCH (09:45)
[2018-02-11] MEDS: KEPPRA PO SCH (09:46)
[2018-02-11] MEDS: BABY ASPIRIN PO SCH (09:46)
[2018-02-11] MEDS: ARICEPT PO SCH (09:46)
[2018-02-11] MEDS: VITAMIN D3 PO SCH (09:46)
[2018-02-11] MEDS: HCTZ PO SCH (09:46)
[2018-02-11] MEDS: PROSCAR PO SCH (09:46)
[2018-02-11] MEDS: CORDARONE PO SCH (09:46)
[2018-02-11] MEDS: FLOMAX PO SCH (09:46)
[2018-02-11] MEDS: LOPRESSOR PO SCH (09:47)
[2018-02-11] MEDS: SODIUM CHLORIDE FLUSH SYRINGE 10 ML IV SCH (09:48)
--- NOTE | 2018-02-11 12:55 | Vascular Lab Report ---
CAROTID DUPLEX STUDY: RIGHT PSVEDV CCA PROX:938 CCA DIST:7116 ICA PROX:8423 ICA MID:6614 ICA DIST:6626 ECA: 6712 VERT: 61 17 LEFT PSVEDV CCA PROX:6610 CCA DIST:6013 ICA PROX:4818 ICA MID:6822 ICA DIST:40969 ECA: 666 VERT: 29 4 REASON FOR EXAM: Stroke. COMMENTS ON THE RIGHT: Doppler frequency analysis is consistent with 16 to 49 percent diameter reduction of the internal carotid artery. A moderate amount of plaque is seen. The common carotid artery is patent. The external carotid artery is patent. The vertebral artery has antegrade flow. COMMENTS ON THE LEFT: Doppler frequency analysis is consistent with 16 to 49 percent diameter reduction of the internal carotid artery. A moderate amount of plaque is seen. The common carotid artery is patent. The external carotid artery is patent. The vertebral artery has antegrade flow. IMPRESSION: Less than 50% diameter reduction in the internal carotid arteries bilaterally. A moderate amount of plaque seen bilaterally. Consider CT angiography.
--- NOTE | 2018-02-11 15:15 | Progress Note ---
Assessment and Plan Assessment and plan: --Acute CVA; left hemiparesis unable to do MRI secondary to ICD, on aspirin and Plavix and statin , CT head; no acute infarct, multiple old infarcts,Carotid Doppler; l< 50% stenosis, Physical therapy occupational therapy Neurology evaluated --Nonischemic cardiomyopathy; ejection fraction 15-20% Medical management, cardiology following --Nonspecific elevation of troponins; secondary to CHF, medical management --Status post ICD; functional supportive care, --Acute kidney injury; resolved --History of BPH; continue Proscar and Flomax --Cardiac arrhythmia; on amiodarone Coumadin, INR subtherapeutic --Hypertension; heart rate controlled Continue current antihypertensives and when necessary medications --Moderate to severe malnutrition; nutrition supplements and supportive care --DVT prophylaxis; Lovenox until INR is therapeutic Consults and recommendations noted and appreciated Physical therapy occupational therapy rehabilitation Discharge planning patient and family requests SNF/rehabilitation placement Case management processing the placement Patient is medically stable for discharge pending placement History Interval history: Patient seen and examined medical records reviewed No new events reported by nursing Alert awake oriented 3 Vital signs reviewed Hospitalist Physical - Constitutional Vitals: Temp Pulse Resp BP Pulse Ox 98.5 F 69 18 120/74 96 02/11/18 07:42 02/11/18 10:00 02/11/18 10:00 02/11/18 09:47 02/11/18 10:00 General appearance: Present: no acute distress, well-nourished - EENT Eyes: Present: PERRL, EOM intact - Neck Neck: Present: supple, normal ROM - Respiratory Respiratory effort: normal Respiratory: negative: rales, rhonchi, wheezing - Cardiovascular Rhythm: regular Heart Sounds: Present: S1 & S2 - Extremities Extremities: no ischemia, No edema - Abdominal General gastrointestinal: soft, non-tender, non-distended, normal bowel sounds - Integumentary Integumentary: Present: clear, warm - Psychiatric Psychiatric: appropriate mood/affect, cooperative - Neurologic Neurologic: other (left hemiparesis) Results - Labs CBC & Chem 7: 02/10/18 15:45 02/10/18 15:45 Labs: Laboratory Last Values WBC 5.4 K/mm3 (4.5-11.0) 02/10/18 15:45 RBC 3.89 M/mm3 (3.65-5.03) 02/10/18 15:45 Hgb 11.4 gm/dl (11.8-15.2) L 02/10/18 15:45 Hct 34.3 % (35.5-45.6) L 02/10/18 15:45 MCV 88 fl (84-94) 02/10/18 15:45 MCH 29 pg (28-32) 02/10/18 15:45 MCHC 33 % (32-34) 02/10/18 15:45 RDW 15.5 % (13.2-15.2) H 02/10/18 15:45 Plt Count 223 K/mm3 (140-440) 02/10/18 15:45 Lymph % (Auto) 16.5 % (13.4-35.0) 02/10/18 15:45 [place] % (Auto) 13.0 % (0.0-7.3) H 02/10/18 15:45 Eos % (Auto) 2.4 % (0.0-4.3) 02/10/18 15:45 Baso % (Auto) 0.3 % (0.0-1.8) 02/10/18 15:45 Lymph # 0.9 K/mm3 (1.2-5.4) L 02/10/18 15:45 Blair # 0.7 K/mm3 (0.0-0.8) 02/10/18 15:45 Eos # 0.1 K/mm3 (0.0-0.4) 02/10/18 15:45 Baso # 0.0 K/mm3 (0.0-0.1) 02/10/18 15:45 Seg Neutrophils % 67.8 % (40.0-70.0) 02/10/18 15:45 Seg Neutrophils # 3.7 K/mm3 (1.8-7.7) 02/10/18 15:45 PT 16.2 Sec. (12.2-14.9) H 02/11/18 06:14 INR 1.23 (0.87-1.13) H 02/11/18 06:14 APTT 28.1 Sec. (24.2-36.6) 02/03/18 14:13 Thrombin Time 15.9 Sec. (15.1-19.6) 02/03/18 14:13 Sodium 137 mmol/L (137-145) 02/10/18 15:45 Potassium 4.2 mmol/L (3.6-5.0) 02/10/18 15:45 Chloride 101.7 mmol/L (98-107) 02/10/18 15:45 Carbon Dioxide 27 mmol/L (22-30) 02/10/18 15:45 Anion Gap 13 mmol/L 02/10/18 15:45 BUN 19 mg/dL (9-20) 02/10/18 15:45 Creatinine 1.2 mg/dL (0.8-1.5) 02/10/18 15:45 Estimated GFR > 60 ml/min 02/10/18 15:45 BUN/Creatinine Ratio 16 % 02/10/18 15:45 Glucose 87 mg/dL (75-100) 02/10/18 15:45 POC Glucose 117 (70-105) H 02/03/18 13:41 Hemoglobin A1c 6.6 % (4-6) H 02/03/18 22:50 Calcium 8.3 mg/dL (8.4-10.2) L 02/10/18 15:45 Magnesium 2.30 mg/dL (1.7-2.3) 02/04/18 07:37 Total Bilirubin 0.70 mg/dL (0.1-1.2) 02/07/18 05:09 AST 75 units/L (5-40) H 02/07/18 05:09 ALT 55 units/L (7-56) 02/07/18 05:09 Alkaline Phosphatase 87 units/L (35-129) 02/07/18 05:09 Total Creatine Kinase 62 units/L (55-170) 02/03/18 14:13 Troponin T 1.320 ng/mL (0.00-0.029) H* 02/05/18 00:56 Total Protein 5.5 g/dL (6.3-8.2) L 02/07/18 05:09 Albumin 3.1 g/dL (3.9-5) L 02/07/18 05:09 Albumin/Globulin Ratio 1.3 % 02/07/18 05:09 Triglycerides 49 mg/dL (2-149) 02/03/18 14:13 Cholesterol 127 mg/dL (50-199) 02/03/18 14:13 LDL Cholesterol Direct 62 mg/dL (50-130) 02/03/18 14:13 HDL Cholesterol 70 mg/dL (40-59) H 02/03/18 14:13 Cholesterol/HDL Ratio 1.81 % 02/03/18 14:13 Urine Color Yellow (Yellow) 02/03/18 14:54 Urine Turbidity Clear (Clear) 02/03/18 14:54 Urine pH 5.0 (5.0-7.0) 02/03/18 14:54 Ur Specific [place] 1.021 (1.003-1.030) 02/03/18 14:54 Urine Protein 30 mg/dl mg/dL (Negative) 02/03/18 14:54 Urine Glucose (UA) Neg mg/dL (Negative) 02/03/18 14:54 Urine Ketones Tr mg/dL (Negative) 02/03/18 14:54 Urine Blood Lg (Negative) 02/03/18 14:54 Urine Nitrite Neg (Negative) 02/03/18 14:54 Urine Bilirubin Neg (Negative) 02/03/18 14:54 Urine Urobilinogen < 2.0 mg/dL (<2.0) 02/03/18 14:54 Ur Leukocyte Esterase Neg (Negative) 02/03/18 14:54 Urine WBC (Auto) 2.0 /HPF (0.0-6.0) 02/03/18 14:54 Urine RBC (Auto) 4.0 /HPF (0.0-6.0) 02/03/18 14:54 Urine Mucus Few /HPF 02/03/18 14:54 Urine Yeast (Budding) 1+ /HPF 02/03/18 14:54 Phenytoin 0.8 ug/mL (10.0-20.0) L 02/03/18 14:13
[2018-02-11 15:16] VITALS: BP 97/57
--- NOTE | 2018-02-11 15:17 | Discharge Summary ---
Providers - Providers Date of Admission: 02/03/18 16:10 Date of discharge: 02/11/18 Attending physician: TOD CASTREJON 02/03/18 13:36 Consult to Physician [CONS] Urgent Comment: Kam Consulting Provider: JASMINE ROD Physician Instructions: consult was called to [id number] Reason For Exam: cva 02/03/18 22:53 Occupational Therapy Evaluate and Treat [CONS] Routine Comment: Reason For Exam: Neuro deficits Physical Therapy Evaluation and Treat [CONS] Routine Comment: Reason For Exam: Neuro deficits 02/03/18 22:57 Consult to Physician [CONS] Routine Comment: KAM Consulting Provider: SKYE NIELSON Physician Instructions: CONSULT WAS CALLED TO [id number] Reason For Exam: CVA 02/04/18 14:57 Consult to Physician [CONS] Routine Comment: Consulting Provider: WILMA FU Physician Instructions: Reason For Exam: cva 02/04/18 15:44 Speech Therapy Evaluation and Treat [CONS] Routine Reason For Exam: CVA Primary care physician: CORRESPONDENCE ANALYST Hospitalization Condition: Stable Disposition: [place]-03 SNF [facility] Core Measure Documentation - Palliative Care Palliative Care/ Comfort Measures: Not Applicable Exam - Constitutional Vitals: Temp Pulse Resp BP Pulse Ox 98.5 F 69 18 120/74 96 02/11/18 07:42 02/11/18 10:00 02/11/18 10:00 02/11/18 09:47 02/11/18 10:00 Plan Follow up with: CHI PATRICIA MD [Staff Physician] - 7 Days PRIMARY CARE, [Primary Care Provider] - 3-5 Days Forms: Warfarin Discharge Instruction Prescriptions: Clopidogrel [Plavix] 75 mg PO QDAY #30 tablet Warfarin Sodium [Coumadin] 5 mg PO QHS #30 tablet
[2018-02-11] MEDS: COUMADIN PO SCH (17:05)
== END 2018-02-11 18:45 | DRG 64 ==
LOC: ED 13:34 → 2B-ACE 16:10 → EEVIPCON 16:10
PROVIDERS: ADMIT Internal Medicine; ATTEND Internal Medicine
DX: I63.9 Cerebral infarction, unspecified (principal); E43 Unspecified severe protein-calorie malnutrition; N17.0 Acute kidney failure with tubular necrosis; I21.4 Non-ST elevation (NSTEMI) myocardial infarction; G81.94 Hemiplegia, unspecified affecting left nondominant side; I42.0 Dilated cardiomyopathy; D64.9 Anemia, unspecified; N40.0 Benign prostatic hyperplasia without lower urinary tract symptoms; F03.90 Unspecified dementia, unspecified severity, without behavioral disturbance, psychotic disturbance, mood disturbance, and anxiety; I11.0 Hypertensive heart disease with heart failure; I50.9 Heart failure, unspecified; E83.42 Hypomagnesemia; I49.9 Cardiac arrhythmia, unspecified; N32.81 Overactive bladder; E78.5 Hyperlipidemia, unspecified; G40.909 Epilepsy, unspecified, not intractable, without status epilepticus; I48.0 Paroxysmal atrial fibrillation; Z68.22 Body mass index [BMI] 22.0-22.9, adult; Z79.82 Long term (current) use of aspirin; Z79.899 Other long term (current) drug therapy; Z91.013 Allergy to seafood; I25.2 Old myocardial infarction; Z95.810 Presence of automatic (implantable) cardiac defibrillator
CPT/HCPCS: 36415; 70450; 71045; 80048; 80053; 80061; 80185; 81001; 82550; 82962; 83036; 83735; 84484; 85025; 85610; 85670; 85730; 93005; 93010; 93880; 96365; A9270-GY; G8987-GO; G8988-GO; G8999-GN; G9186-GN; J1650; J3475; J7030; J7040